=== PATIENT | female | born 1930 | race Caucasian/White ===

== ENCOUNTER → 2017-01-30 | Outpatient (CLI) | payer MEDICARE ==
[~2017-01-30] MED LIST: ASPI81TA82 PO; BENA25TA5 PO; CO Q30CA3 PO; DOCU1CAP39 PO; LORA-392 PO; MAGN30S PO; ROSU20 PO; VITA400C28 PO; VITA500T10 PO
== END ==
LOC: PLAB 15:34
PROVIDERS: ATTEND Internal Medicine
DX: J42 Unspecified chronic bronchitis (principal)
CPT/HCPCS: 87070; 87205

== ENCOUNTER → 2017-06-10 | Outpatient (CLI) | payer MEDICARE ==
[2017-06-10 13:20] LABS: HEMATOCRIT 36.5 % (35.0-46.0); MEAN CELL VOLUME 92.7 FL (80.0-100.0); MEAN CORPUSCULAR HEMOGLOBIN 31.1 PG (27.0-34.0); MEAN CORPUSCULAR HGB CONC 33.5 % (32.0-36.0); PLATELET COUNT 174 TH/MM3 (150-450); RED BLOOD COUNT 3.94 MIL/MM3 (4.00-5.30); RED CELL DISTRIBUTION WIDTH 13.5 % (11.6-17.2); REVIEW FLAG FINAL; WHITE BLOOD COUNT 5.6 TH/MM3 (4.0-11.0)
[2017-06-10 13:44] LABS: ANION GAP 4 MEQ/L (5-15); AST (GOT) 19 U/L (15-37); BICARBONATE 31.5 MEQ/L (21.0-32.0); BLOOD UREA NITROGEN 19 MG/DL (7-18); CHLORIDE 105 MEQ/L (98-107); GLOMERULAR FILTRATION RATE 49 ML/MIN (>89); GLUCOSE,FASTING 93 MG/DL (74-99); POTASSIUM 4.2 MEQ/L (3.5-5.1); SODIUM (NA) 140 MEQ/L (136-145)
[2017-06-10 13:45] LABS: ALT (GPT) 16 U/L (10-53)
[2017-06-10 13:49] LABS: ALKALINE PHOSPHATASE 74 U/L (45-117); HDL CHOLESTEROL 40.5 MG/DL (40.0-60.0); LDL CHOLESTEROL 100 MG/DL (0-99); LDL CHOLESTEROL DIRECT 109 MG/DL (0-99); TOTAL BILIRUBIN ADULT 0.7 MG/DL (0.2-1.0)
== END ==
LOC: PLAB 09:42
PROVIDERS: ATTEND Internal Medicine
DX: I25.10 Atherosclerotic heart disease of native coronary artery without angina pectoris (principal); E78.5 Hyperlipidemia, unspecified; J44.1 Chronic obstructive pulmonary disease with (acute) exacerbation
CPT/HCPCS: 36415; 80053; 80061; 83721; 85027

== ENCOUNTER → 2017-07-04 | Outpatient (CLI) | payer MEDICARE ==
[2017-07-04 13:57] LABS: HDL CHOLESTEROL 43.3 MG/DL (40.0-60.0); INDIRECT BILIRUBIN 0.4 MG/DL (0.0-0.8); TOTAL BILIRUBIN ADULT 0.5 MG/DL (0.2-1.0)
== END ==
LOC: PLAB 09:01
PROVIDERS: ATTEND Internal Medicine Interventional Cardiology
DX: R94.39 Abnormal result of other cardiovascular function study (principal); I77.9 Disorder of arteries and arterioles, unspecified; I25.10 Atherosclerotic heart disease of native coronary artery without angina pectoris; I10 Essential (primary) hypertension; E78.2 Mixed hyperlipidemia; Z79.899 Other long term (current) drug therapy; Z95.1 Presence of aortocoronary bypass graft; Z86.73 Personal history of transient ischemic attack (TIA), and cerebral infarction without residual deficits
CPT/HCPCS: 36415; 80061; 80076; 82550

== ENCOUNTER → 2017-09-27 | Outpatient (CLI) | payer MEDICARE ==
[2017-09-27 14:24] LABS: HDL CHOLESTEROL 46.6 MG/DL (40.0-60.0); INDIRECT BILIRUBIN 0.5 MG/DL (0.0-0.8); TOTAL BILIRUBIN ADULT 0.6 MG/DL (0.2-1.0)
== END ==
LOC: PLAB 08:47
PROVIDERS: ATTEND Internal Medicine Interventional Cardiology
DX: E78.2 Mixed hyperlipidemia (principal); Z79.899 Other long term (current) drug therapy
CPT/HCPCS: 36415; 80061; 80076; 82550

== ENCOUNTER → 2017-12-02 | Outpatient (CLI) | payer MEDICARE ==
[~2017-12-02] MED LIST changes: +ASPI325T27 PO; -ASPI81TA82 PO; +ATOR20TA15 PO; -BENA25TA5 PO; -CO Q30CA3 PO; +COQ130CA PO; -DOCU1CAP39 PO; +DULC5TAB PO; +IBUP200C PO; -LORA-392 PO; -MAGN30S PO; +MAPA325T PO; +METO25TA3 PO; +MILKSUS PO; -ROSU20 PO; -VITA400C28 PO; -VITA500T10 PO
[2017-12-02 16:31] LABS: HEMOGLOBIN 12.1 GM/DL (11.6-15.3); MEAN CELL VOLUME 94.1 FL (80.0-100.0); MEAN CORPUSCULAR HEMOGLOBIN 31.6 PG (27.0-34.0); MEAN CORPUSCULAR HGB CONC 33.6 % (32.0-36.0); MEAN PLATELET VOLUME 7.7 FL (7.0-11.0); PLATELET COUNT 245 TH/MM3 (150-450); RED BLOOD COUNT 3.83 MIL/MM3 (4.00-5.30); WHITE BLOOD COUNT 6.5 TH/MM3 (4.0-11.0)
[2017-12-02 16:48] LABS: ALBUMIN 3.4 GM/DL (3.4-5.0); ALT (GPT) 16 U/L (10-53); AST (GOT) 18 U/L (15-37); BICARBONATE 28.7 MEQ/L (21.0-32.0); BLOOD UREA NITROGEN 22 MG/DL (7-18); CALCIUM 9.1 MG/DL (8.5-10.1); CHLORIDE 101 MEQ/L (98-107); CREATININE 1.41 MG/DL (0.50-1.00); GLOMERULAR FILTRATION RATE 35 ML/MIN (>89); GLUCOSE,RANDOM 84 MG/DL (74-106); SODIUM (NA) 135 MEQ/L (136-145)
[2017-12-02 16:50] LABS: ALKALINE PHOSPHATASE 72 U/L (45-117); TOTAL BILIRUBIN ADULT 0.3 MG/DL (0.2-1.0); TOTAL PROTEIN 7.1 GM/DL (6.4-8.2)
== END ==
LOC: PLAB 13:10
PROVIDERS: ATTEND Emergency Medicine
DX: N39.0 Urinary tract infection, site not specified (principal)
CPT/HCPCS: 36415; 80053; 85027

== ENCOUNTER 2017-12-14 16:03 | Emergency (ER) | payer MEDICARE ==
[~2017-12-14] VITALS: Ht 157.5 cm; Wt 62.9 kg
[2017-12-14 16:28] VITALS: BP 117/64; PULSE 67; RESP 16; TEMP 98.5; O2SAT 96
--- NOTE | 2017-12-14 17:29 | PD ---
HPI Chief Complaint: Edema Time Seen by Provider: 16:42 Travel History International Travel<30 days: No Contact w/Intl Traveler<30days: No Traveled to known affect area: No History of Present Illness HPI This patient complains of swelling in her feet. Duration 2 days. Severity is mild. No pain or injury. No alleviating factors. No exacerbating factors. She is not short of breath. PFSH Past Medical History Hx Anticoagulant Therapy: Yes (as 162mg) AAA: Yes Arthritis: Yes Asthma: No Blood Disorders: Yes (from aspirin) Anxiety: No Depression: Yes Heart Rhythm Problems: Yes (? irregular -pt unsure why) Cancer: Yes (SKIN ON BACK) Cardiac Catheterization: Yes Cardiovascular Problems: Yes (htn on meds, [place], stents) High Cholesterol: Yes Chemotherapy: No Chest Pain: No Congestive Heart Failure: No COPD: No Cerebrovascular Accident: Yes (tia) Diabetes: No Diminished Hearing: No Endocrine: Yes (RENAL FAILURE IN 1962; NO PROBLEMS AT THIS TIME.) Gastrointestinal Disorders: Yes (possible irritable bowel, constipation) GERD: No Glaucoma: No Genitourinary: Yes (incontinence at times ) Hepatitis: No Hiatal Hernia: No Hypertension: No Immune Disorder: No Musculoskeletal: Yes (back pain) Neurologic: Yes Psychiatric: Yes Reproductive: No Respiratory: Yes (has seen a business services specialist sales, nodules on CXR? reason) Myocardial Infarction: Yes (1987) Radiation Therapy: No Renal Failure: Yes Thyroid Disease: No Influenza Vaccination: Yes ?: Not Past Surgical History Abdominal Aneurysm Repair: Yes (1992) Abdominal Surgery: Yes (AAA REPAIR) Coronary Stent: Yes Eye Surgery: Yes (NICOLE. CATARACT EXTRACT) Genitourinary Surgery: Yes (BLADDER SUSPENSION/ REPAIR) Gynecologic Surgery: Yes (FULL HYSTERECTOMY) Hysterectomy: Yes Oral Surgery: No Other Surgery: Yes (SINUS SURGERY) Social History Alcohol Use: No Tobacco Use: No (quit 20 years ago) Substance Use: No Allergies-Medications (Allergen,Severity, Reaction): Coded Allergies: Iodinated Contrast- Oral and IV Dye (Verified Allergy, Severe, UNKOWN, ) azithromycin (Verified Allergy, Severe, irregular heart rate, 12/14/17) codeine (Unverified Allergy, Severe, 10/24/17) gabapentin (Verified Allergy, Severe, Fever, 10/24/17) levofloxacin (Verified Allergy, Severe, Insomnia, 10/24/17) NAUSEA meperidine (Unverified Allergy, Severe, NAUSEA, 10/24/17) baclofen (Unverified Allergy, Intermediate, Swelling, 10/24/17) ciprofloxacin (Unverified Allergy, Intermediate, Insomnia, 10/24/17) nitrofurantoin (Verified Allergy, Intermediate, fevers, 12/14/17) phenazopyridine (Verified Allergy, Intermediate, n/v, 12/14/17) tramadol (Verified Allergy, Intermediate, Hallucinations, 12/14/17) cefaclor (Verified Allergy, Unknown, 12/14/17) cephalexin (Verified Allergy, Unknown, 12/14/17) cephradine (Verified Allergy, Unknown, 12/14/17) iodine (Unverified Allergy, Unknown, UNKNOWN, 10/24/17) HAS TESTED POSITIVE FOR ALLERGY TO IODINE BUT NO KNOWN EXPOSURE lidocaine (Unverified Allergy, Unknown, 10/24/17) potassium iodide (Unverified Allergy, Unknown, UNKNOWN, 10/24/17) HAS TESTED POSITIVE FOR ALLERGY TO IODINE BUT NO KNOWN EXPOSURE povidone-iodine (Unverified Allergy, Unknown, UNKNOWN, 10/24/17) HAS TESTED POSITIVE FOR ALLERGY TO IODINE BUT NO KNOWN EXPOSURE prednisone (Verified Allergy, Unknown, 12/14/17) sodium iodide (Unverified Allergy, Unknown, UNKNOWN, 10/24/17) HAS TESTED POSITIVE FOR ALLERGY TO IODINE BUT NO KNOWN EXPOSURE sodium iodide (Unverified Allergy, Unknown, UNKNOWN, 10/24/17) HAS TESTED POSITIVE FOR ALLERGY TO IODINE BUT NO KNOWN EXPOSURE epinephrine (Unverified Adverse Reaction, Severe, TACHYCARDIA/ SYNCOPE, ) Reported Meds & Prescriptions Reported Meds & Active Scripts Active Reported Mapap (Acetaminophen) 325 Mg Tab 325 Mg PO Q4-6H PRN Dulcolax DR (Bisacodyl) 5 Mg Tabdr 5 Mg PO DAILY PRN Ibuprofen 200 Mg Cap 200 Mg PO Q6H PRN Atorvastatin (Atorvastatin Calcium) 20 Mg Tab 10 Mg PO BID Metoprolol Tartrate 25 Mg Tab 12.5 Mg PO BID Aspirin DR (Aspirin) 325 Mg Tabdr 0.5 Tab PO DAILY Coq10 (Coenzyme Q10 (Ubidecarenone)) 30 Mg Cap 1 Cap PO DAILY Milk of Magnesia Liq (Magnesium Hydroxide) 400 Mg/5 Ml Susp 30 Ml PO DAILY PRN Review of Systems General / Constitutional: No: Fever Eyes: No: Visual changes HENT: No: Headaches Cardiovascular: Positive: Edema, No: Chest Pain or Discomfort Respiratory: No: Shortness of Breath Gastrointestinal: No: Abdominal Pain Genitourinary: No: Dysuria Musculoskeletal: Positive: Edema, No: Pain Skin: No Rash Neurologic: No: Weakness Psychiatric: No: Depression Endocrine: No: Polydipsia Hematologic/Lymphatic: No: Easy Bruising Physical Exam Narrative GENERAL: Well-nourished, well-developed patient in no apparent distress. SKIN: Focused skin assessment reveals no rash and nodules. Skin is Warm and dry. HEAD: Atraumatic. Normocephalic. EYES: Pupils equal and round. No scleral icterus. No injection or drainage. ENT: No nasal bleeding or discharge. Mucous membranes pink and moist. NECK: Trachea midline. No JVD. CARDIOVASCULAR: Regular rate and rhythm. No murmur appreciated. RESPIRATORY: No accessory muscle use. Clear to auscultation. Breath sounds equal bilaterally. GASTROINTESTINAL: Abdomen soft, non-tender, nondistended. Hepatic and splenic margins not palpable. MUSCULOSKELETAL: No obvious deformities. No clubbing. No cyanosis. Trace symmetric feet and ankle edema. NEUROLOGICAL: Awake and alert. No obvious cranial nerve deficits. Motor grossly within normal limits. Normal speech. PSYCHIATRIC: Appropriate mood and affect; insight and judgment normal. Data Data Last Documented VS Vital Signs Date Time Temp Pulse Resp B/P (MAP) Pulse Ox O2 Delivery O2 Flow Rate FiO2 12/14/17 16:28 98.5 67 16 117/64 (81) 96 MDM Medical Decision Making Medical Screen Exam Complete: Yes Emergency Medical Condition: Yes Medical Record Reviewed: Yes Differential Diagnosis Liver failure, renal failure, CHF Narrative Course I have reviewed the patient's electronic medical record. Reviewed her lab work from well days ago showing normal renal function normal LFTs and normal CBC Patient looks clinically well. She has minor trace edema in the feet and ankles for 2 days. Recent labs are normal. I don't feel repeating them again as needed. She is clear lungs and no shortness of breath and not in CHF Recommend primary care follow-up and elevate legs and use low-sodium diet and start with knee-high compression stockings Diagnosis Primary Impression: Leg edema Additional Instructions: The patient was advised to follow up with their physician and return if they worsen. Wear knee-high compression stockings Use low-sodium diet Elevate legs Med/Other Pt SpecificInfo: Other Disposition: 01 DISCHARGE HOME Condition: Stable Александр Todd MD Dec 14, 2017 17:29
== END 2017-12-14 17:47 | disposition home or self-care (01) ==
LOC: PHED 16:03
DX: R60.0 Localized edema (principal); M19.90 Unspecified osteoarthritis, unspecified site; I25.2 Old myocardial infarction; Z79.82 Long term (current) use of aspirin
CPT/HCPCS: 99282

== ENCOUNTER → 2017-12-18 | Outpatient (CLI) | payer MEDICARE ==
[2017-12-18 16:13] LABS: AMORPHOUS SEDIMENT, URINE OCC; BACTERIA, URINE MANY /hpf; BILIRUBIN, URINE NEG (NEG); BLOOD, URINE MOD (NEG); GLUCOSE,URINE NEG (NEG); KETONE, URINE NEG (NEG); MUCUS URINE FEW /lpf (OCC); NITRITE,URINE POS (NEG); PH, URINE 6.5 (5.0-8.5); URINE COLOR YELLOW (YELLW/STRAW); URINE LEUKOCYTE ESTERASE LARGE (NEG); WHITE BLOOD CELL CLUMPS MANY
[2017-12-18 16:15] LABS: HEMATOCRIT 36.3 % (35.0-46.0); HEMOGLOBIN 12.2 GM/DL (11.6-15.3); MEAN CELL VOLUME 94.4 FL (80.0-100.0); MEAN CORPUSCULAR HEMOGLOBIN 31.7 PG (27.0-34.0); MEAN CORPUSCULAR HGB CONC 33.6 % (32.0-36.0); MEAN PLATELET VOLUME 7.6 FL (7.0-11.0); PLATELET COUNT 270 TH/MM3 (150-450); RED BLOOD COUNT 3.84 MIL/MM3 (4.00-5.30); RED CELL DISTRIBUTION WIDTH 14.7 % (11.6-17.2); WHITE BLOOD COUNT 6.5 TH/MM3 (4.0-11.0)
[2017-12-18 16:44] LABS: ALBUMIN 3.4 GM/DL (3.4-5.0); ALKALINE PHOSPHATASE 107 U/L (45-117); ALT (GPT) 15 U/L (10-53); AST (GOT) 18 U/L (15-37); BLOOD UREA NITROGEN 16 MG/DL (7-18); CALCIUM 9.1 MG/DL (8.5-10.1); CREATININE 1.34 MG/DL (0.50-1.00); GLOMERULAR FILTRATION RATE 38 ML/MIN (>89); GLUCOSE,FASTING 95 MG/DL (74-99); TOTAL PROTEIN 7.2 GM/DL (6.4-8.2)
[2017-12-18 16:45] LABS: CHLORIDE 97 MEQ/L (98-107); CHOLESTEROL 172 MG/DL (120-200); CHOLESTEROL/ HDL RATIO 3.32 RATIO; DIRECT BILIRUBIN ADULT 0.1 MG/DL (0.0-0.2); HDL CHOLESTEROL 51.7 MG/DL (40.0-60.0); LDL CHOLESTEROL 94 MG/DL (0-99); SODIUM (NA) 130 MEQ/L (136-145); TOTAL BILIRUBIN ADULT 0.6 MG/DL (0.2-1.0); TRIGLYCERIDES 131 MG/DL (42-150)
[2017-12-18 20:50] LABS: HEMOGLOBIN A1C 6.1 % (4.3-6.0)
== END ==
LOC: PLAB 11:44
PROVIDERS: ATTEND Internal Medicine
DX: I25.10 Atherosclerotic heart disease of native coronary artery without angina pectoris (principal); J44.1 Chronic obstructive pulmonary disease with (acute) exacerbation; I10 Essential (primary) hypertension; R73.09 Other abnormal glucose; N39.0 Urinary tract infection, site not specified; B96.20 Unspecified Escherichia coli [E. coli] as the cause of diseases classified elsewhere; E78.5 Hyperlipidemia, unspecified
CPT/HCPCS: 36415; 80053; 80061; 81001; 82043; 82248; 83036; 85027; 87077; 87086; 87186

== ENCOUNTER 2018-01-06 13:24 | Inpatient (IN) | payer MEDICARE ==
[~2018-01-06] VITALS: Ht 158.8 cm; Wt 63.6 kg
[2018-01-06 14:45] VITALS: BP 146/92; PULSE 68; RESP 18; TEMP 98; O2SAT 98
--- NOTE | 2018-01-06 17:08 | PD ---
HPI Chief Complaint: Back/ Neck Pain or Injury Time Seen by Provider: 16:53 Travel History International Travel<30 days: No Contact w/Intl Traveler<30days: No Traveled to known affect area: No History of Present Illness HPI 87-year-old female who lives alone with chronic back pain with reported history of compression fractures in her thoracic and lumbar spine, here for evaluation of increased pain and inability to care for herself because of the pain. She reports a twisting injury about a week ago causing increased pain. She was prescribed hydrocodone which seemed to help her pain a little bit. She reports that she was scheduled for kyphoplasty by orthopedist Dr. Barrow, however she reports that because she owes the office money that they will not see her until she pays what she owes. No urinary or bowel incontinence or retention. No paresthesias or motor deficits. Pain is severe, constant, worse with movements. PFSH Past Medical History Hx Anticoagulant Therapy: Yes (as 162mg) AAA: Yes Arthritis: Yes Asthma: No Blood Disorders: Yes (from aspirin) Anxiety: No Depression: Yes Heart Rhythm Problems: Yes (? 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 reason) Myocardial Infarction: Yes (1987) Radiation Therapy: No Renal Failure: Yes Thyroid Disease: No Past Surgical History Abdominal Aneurysm Repair: Yes (1992) Abdominal Surgery: Yes (AAA REPAIR) Coronary Stent: Yes Eye Surgery: Yes (NICOLE. CATARACT EXTRACT) Genitourinary Surgery: Yes (BLADDER SUSPENSION/ REPAIR) Gynecologic Surgery: Yes (FULL HYSTERECTOMY) Hysterectomy: Yes Oral Surgery: No Other Surgery: Yes (SINUS SURGERY) Social History Alcohol Use: No Tobacco Use: No (quit 20 years ago) Substance Use: No Allergies-Medications (Allergen,Severity, Reaction): Coded Allergies: Iodinated Contrast- Oral and IV Dye (Verified Allergy, Severe, UNKOWN, ) azithromycin (Verified Allergy, Severe, irregular heart rate, 12/14/17) codeine (Unverified Allergy, Severe, 10/24/17) gabapentin (Verified Allergy, Severe, Fever, 10/24/17) levofloxacin (Verified Allergy, Severe, Insomnia, 10/24/17) NAUSEA meperidine (Unverified Allergy, Severe, NAUSEA, 10/24/17) baclofen (Unverified Allergy, Intermediate, Swelling, 10/24/17) ciprofloxacin (Unverified Allergy, Intermediate, Insomnia, 10/24/17) nitrofurantoin (Verified Allergy, Intermediate, fevers, 12/14/17) phenazopyridine (Verified Allergy, Intermediate, n/v, 12/14/17) tramadol (Verified Allergy, Intermediate, Hallucinations, 12/14/17) cefaclor (Verified Allergy, Unknown, 12/14/17) cephalexin (Verified Allergy, Unknown, 12/14/17) cephradine (Verified Allergy, Unknown, 12/14/17) iodine (Unverified Allergy, Unknown, UNKNOWN, 10/24/17) HAS TESTED POSITIVE FOR ALLERGY TO IODINE BUT NO KNOWN EXPOSURE lidocaine (Unverified Allergy, Unknown, 10/24/17) potassium iodide (Unverified Allergy, Unknown, UNKNOWN, 10/24/17) HAS TESTED POSITIVE FOR ALLERGY TO IODINE BUT NO KNOWN EXPOSURE povidone-iodine (Unverified Allergy, Unknown, UNKNOWN, 10/24/17) HAS TESTED POSITIVE FOR ALLERGY TO IODINE BUT NO KNOWN EXPOSURE prednisone (Verified Allergy, Unknown, 12/14/17) sodium iodide (Unverified Allergy, Unknown, UNKNOWN, 10/24/17) HAS TESTED POSITIVE FOR ALLERGY TO IODINE BUT NO KNOWN EXPOSURE sodium iodide (Unverified Allergy, Unknown, UNKNOWN, 10/24/17) HAS TESTED POSITIVE FOR ALLERGY TO IODINE BUT NO KNOWN EXPOSURE epinephrine (Unverified Adverse Reaction, Severe, TACHYCARDIA/ SYNCOPE, ) Reported Meds & Prescriptions Reported Meds & Active Scripts Active Reported Angelica (Hydrocodone-Acetaminophen) 5 Mg-325 Mg Tab 1 Tab PO Q4-6H PRN Aspirin Adult Low Strength (Aspirin) 81 Mg Tabdr 40.5 Mg PO DAILY Mapap (Acetaminophen) 325 Mg Tab 325 Mg PO Q4-6H PRN Dulcolax DR (Bisacodyl) 5 Mg Tabdr 5 Mg PO DAILY PRN Ibuprofen 200 Mg Cap 200 Mg PO Q6H PRN Atorvastatin (Atorvastatin Calcium) 20 Mg Tab 10 Mg PO DAILY Metoprolol Tartrate 25 Mg Tab 12.5 Mg PO BID Milk of Magnesia Liq (Magnesium Hydroxide) 400 Mg/5 Ml Susp 30 Ml PO DAILY PRN Review of Systems Except as stated in HPI: all other systems reviewed are Neg Physical Exam Narrative GENERAL: Well-developed, well-nourished, elderly-appearing female, comfortable, no apparent distress. SKIN: Focused skin assessment warm/dry. HEAD: Atraumatic. Normocephalic. EYES: Pupils equal and round. No scleral icterus. No injection or drainage. ENT: No nasal bleeding or discharge. Mucous membranes pink and moist. NECK: Trachea midline. No JVD. CARDIOVASCULAR: Regular rate and rhythm. No murmur appreciated. RESPIRATORY: No accessory muscle use. Clear to auscultation. Breath sounds equal bilaterally. GASTROINTESTINAL: Abdomen soft, non-tender, nondistended. Hepatic and splenic margins not palpable. MUSCULOSKELETAL: No obvious deformities. No clubbing. No cyanosis. Moderate bilateral lower extremity edema. Moderate lumbar and thoracic spine tenderness without step-off. NEUROLOGICAL: Awake and alert. No obvious cranial nerve deficits. Motor grossly within normal limits. Normal speech. PSYCHIATRIC: Appropriate mood and affect; insight and judgment normal. Data Data Last Documented VS Vital Signs Date Time Temp Pulse Resp B/P (MAP) Pulse Ox O2 Delivery O2 Flow Rate FiO2 01/06/18 18:13 24 01/06/18 17:21 66 131/63 (85) 98 Room Air 01/06/18 14:45 98.0 Orders Orders Complete Blood Count With Diff (01/06/18 17:) Comprehensive Metabolic Panel (01/06/18 17:) Prothrombin Time / Inr (Pt) (01/06/18 17:) Act Partial Throm Time (Ptt) (01/06/18 17:) Urinalysis - C+S If Indicated (01/06/18 17:) Iv Access Insert/Monitor (01/06/18 17:) Ecg Monitoring (01/06/18 17:01) Oximetry (01/06/18 17:01) Sodium Chloride 0.9% Flush (Ns Flush) (01/06/18 17:15) Chest, Single Ap (01/06/18 ) Ct Thor Spine W/O Contrast (01/06/18 ) Ct Lumb Spine W/O Contrast (01/06/18 ) Cath For Specimen (01/06/18 17:01) Morphine Inj (Morphine Inj) (01/06/18 17:15) Urine Culture (01/06/18 18:00) Piperacil-Tazo 4.5 Gm Premix (Zosyn 4.5 (01/06/18 19:00) Labs Laboratory Tests Test 01/06/18 17:44 01/06/18 18:00 White Blood Count 6.9 TH/MM3 Red Blood Count 3.64 MIL/MM3 Hemoglobin 11.7 GM/DL Hematocrit 34.5 % Mean Corpuscular Volume 94.6 FL Mean Corpuscular Hemoglobin 32.2 PG Mean Corpuscular Hemoglobin Concent 34.1 % Red Cell Distribution Width 13.9 % Platelet Count 254 TH/MM3 Mean Platelet Volume 7.0 FL Neutrophils (%) (Auto) 61.4 % Lymphocytes (%) (Auto) 25.5 % Monocytes (%) (Auto) 10.8 % Eosinophils (%) (Auto) 1.8 % Basophils (%) (Auto) 0.5 % Neutrophils # (Auto) 4.2 TH/MM3 Lymphocytes # (Auto) 1.8 TH/MM3 Monocytes # (Auto) 0.7 TH/MM3 Eosinophils # (Auto) 0.1 TH/MM3 Basophils # (Auto) 0.0 TH/MM3 CBC Comment DIFF FINAL Differential Comment Prothrombin Time 10.7 SEC Prothromb Time International Ratio 1.1 RATIO Activated Partial Thromboplast Time 25.0 SEC Blood Urea Nitrogen 21 MG/DL Creatinine 1.27 MG/DL Random Glucose 114 MG/DL Total Protein 7.4 GM/DL Albumin 3.5 GM/DL Calcium Level 9.7 MG/DL Alkaline Phosphatase 97 U/L Aspartate Amino Transf (AST/SGOT) 27 U/L Alanine Aminotransferase (ALT/SGPT) 25 U/L Total Bilirubin 0.5 MG/DL Sodium Level 132 MEQ/L Potassium Level 4.0 MEQ/L Chloride Level 97 MEQ/L Carbon Dioxide Level 26.9 MEQ/L Anion Gap 8 MEQ/L Estimat Glomerular Filtration Rate 40 ML/MIN Urine Color DARK-YELLOW Urine Turbidity HAZY Urine pH 6.5 Urine Specific Crucible 1.014 Urine Protein 30 mg/dL Urine Glucose (UA) NEG mg/dL Urine Ketones NEG mg/dL Urine Occult Blood SMALL Urine Nitrite NEG Urine Bilirubin NEG Urine Urobilinogen LESS THAN 2.0 MG/DL Urine Leukocyte Esterase LARGE Urine RBC 8 /hpf Urine WBC /hpf Urine WBC Clumps FEW Urine Squamous Epithelial Cells 1 /hpf Urine Amorphous Sediment RARE Urine Bacteria MOD /hpf Microscopic Urinalysis Comment CULTURE INDICATED MDM Medical Decision Making Medical Screen Exam Complete: Yes Emergency Medical Condition: Yes Medical Record Reviewed: Yes Differential Diagnosis Chronic back pain, spinal stenosis/compression fractures, inability to care for self. Narrative Course Vital signs reviewed. CBC is unremarkable. CMP is remarkable for sodium 132, chloride 97, BUN 21, creatinine 1.27, GFR 40. UA suggestive of UTI. The patient has several listed medication allergies. She was written for a dose of Zosyn. Chest x-ray: CONCLUSION: No acute disease. CT thoracic spine: CONCLUSION: 1. Mild and potentially acute compression fracture of T10 without associated foraminal or spinal stenosis. 2. Moderate severity chronic appearing compression fracture of T11. CT lumbar spine: CONCLUSION: 1. Chronic compression deformities of each lumbar vertebra as above without fracture-associated foraminal or spinal stenosis. No acute fracture demonstrated. No subluxation. 2. Multilevel degenerative changes as above. Patient was made aware of all findings. She lives alone and states she is unable to walk or take care of herself because of the pain. Because of this she will be admitted for further treatment and evaluation. Case discussed with hospitalist Dr. Hoover who will admit the patient to her service. Diagnosis Primary Impression: Severe back pain Additional Impressions: Gait instability UTI (urinary tract infection) Qualified Codes: N39.0 - Urinary tract infection, site not specified; R31.9 - Hematuria, unspecified Vertebral compression fracture Qualified Codes: M48.50XS - Collapsed vertebra, not elsewhere classified, site unspecified, sequela of fracture Admitting Information Admitting Physician Requests: Levar Dove MD Jan 06, 2018 17:08
[2018-01-06] MEDS ORDERED: SODIUM CHLORIDE 0.9% FLUSH 10 ML FLUSH IV FLUSH PRN ×2 (17:15→20:15)
[2018-01-06] MEDS ORDERED: MORPHINE SULFATE 2 MG/ML INJ IV PUSH ONE ×2 (17:15→20:45)
[2018-01-06 17:21] VITALS: BP 131/63; PULSE 66; O2SAT 98
--- NOTE | 2018-01-06 17:21 | RADRPT ---
EXAM DATE/TIME: 01/06/2018 17:06 [facility] COMPARISON: No previous studies available for comparison. INDICATIONS : Short of breath MEDICAL HISTORY : Cardiovascular disease. SURGICAL HISTORY : None. ENCOUNTER: Initial ACUITY: 1 day PAIN SCORE: 0/10 LOCATION: chest FINDINGS: A single view of the chest demonstrates the lungs to be symmetrically aerated without evidence of mas s, infiltrate or effusion. The cardiomediastinal contours are unremarkable. Osseous structures are intact. CONCLUSION: No acute disease. Dawson Farris MD on January 06, 2018 at 17:19 Board Certified Radiologist. This report was verified electronically.
[2018-01-06] MEDS ORDERED: NORC5TAB PO (17:57)
[2018-01-06] MEDS ORDERED: ASPI81TA16 PO (17:57)
[2018-01-06 18:18] LABS: AUTOMATED NEUTROPHIL # 4.2 TH/MM3 (1.8-7.7); BASOPHIL % 0.5 % (0.0-2.0); EOSINOPHIL # 0.1 TH/MM3 (0-0.4); EOSINOPHIL % 1.8 % (0.0-4.0); HEMATOCRIT 34.5 % (35.0-46.0); HEMOGLOBIN 11.7 GM/DL (11.6-15.3); LYMPH % 25.5 % (9.0-44.0); LYMPHOCYTE # 1.8 TH/MM3 (1.0-4.8); MEAN CELL VOLUME 94.6 FL (80.0-100.0); MEAN CORPUSCULAR HEMOGLOBIN 32.2 PG (27.0-34.0); MEAN CORPUSCULAR HGB CONC 34.1 % (32.0-36.0); MONO % 10.8 % (0.0-8.0); MONOCYTE # 0.7 TH/MM3 (0-0.9); NEUT % 61.4 % (16.0-70.0); PLATELET COUNT 254 TH/MM3 (150-450); RED BLOOD COUNT 3.64 MIL/MM3 (4.00-5.30); RED CELL DISTRIBUTION WIDTH 13.9 % (11.6-17.2); WHITE BLOOD COUNT 6.9 TH/MM3 (4.0-11.0)
[2018-01-06 18:25] LABS: INTERNATIONAL NORMALIZED RATIO 1.1 RATIO; PROTHROMBIN TIME - PATIENT 10.7 SEC (9.8-11.6)
[2018-01-06 18:38] LABS: ALT (GPT) 25 U/L (10-53)
[2018-01-06 18:41] LABS: ALKALINE PHOSPHATASE 97 U/L (45-117); TOTAL BILIRUBIN ADULT 0.5 MG/DL (0.2-1.0); TOTAL PROTEIN 7.4 GM/DL (6.4-8.2)
[2018-01-06 18:42] LABS: AMORPHOUS SEDIMENT, URINE RARE; BACTERIA, URINE MOD /hpf; BILIRUBIN, URINE NEG (NEG); BLOOD, URINE SMALL (NEG); GLUCOSE,URINE NEG (NEG); KETONE, URINE NEG (NEG); NITRITE,URINE NEG (NEG); PH, URINE 6.5 (5.0-8.5); SQUAMOUS EPITHELIAL CELL URINE 1 /hpf (0-5); URINE COLOR DARK-YELLOW (YELLW/STRAW); URINE LEUKOCYTE ESTERASE LARGE (NEG); WHITE BLOOD CELL CLUMPS FEW
[2018-01-06 18:49] LABS: ALBUMIN 3.5 GM/DL (3.4-5.0); AST (GOT) 27 U/L (15-37); BICARBONATE 26.9 MEQ/L (21.0-32.0); BLOOD UREA NITROGEN 21 MG/DL (7-18); CALCIUM 9.7 MG/DL (8.5-10.1); CHLORIDE 97 MEQ/L (98-107); CREATININE 1.27 MG/DL (0.50-1.00); GLOMERULAR FILTRATION RATE 40 ML/MIN (>89); GLUCOSE,RANDOM 114 MG/DL (74-106); SODIUM (NA) 132 MEQ/L (136-145)
[2018-01-06] MEDS ORDERED: PIPERACIL-TAZO 4.5 GM PREMIX 100 ML IV ONE (19:00)
--- NOTE | 2018-01-06 19:32 | RADRPT ---
EXAM DATE/TIME: 01/06/2018 19:05 [facility] COMPARISON: Report only MRI THORACIC SPINE W/O CONTRAST, December 13, 2013, 15:33. INDICATIONS : Low back pain for two to three weeks; prior fracture. RADIATION DOSE: 24.78 CTDIvol (mGy) ; Combined studies - Thoracic Spine/Lumbar Spine MEDICAL HISTORY : Cerebrovascular disease. Cardiovascular disease Hypertension.Renal failure SURGICAL HISTORY : Abdominal aortic aneurysm repair. ENCOUNTER: Initial ACUITY: 3 weeks PAIN SCALE: 8/10 LOCATION: T spine TECHNIQUE: Volumetric scanning of the thoracic spine was performed. Multiplanar reconstructions in the sagittal , coronal and oblique axial planes were performed. Using automated exposure control and adjustment o f the mA and/or kV according to patient size, radiation dose was kept as low as reasonably achievable to obtain optimal diagnostic quality images. DICOM format image data is available electronically f or review and comparison. FINDINGS: There is an old appearing, moderate severity compression fracture of T11. There is a mild superior endplate compression fracture of T10, possibly acute. No other fractures are demonstrated of the thoracic spine. No significant retropulsion. There is no s ignificant fracture-associated foraminal or spinal stenosis. I don't see an epidural hematoma. CONCLUSION: 1. Mild and potentially acute compression fracture of T10 without associated foraminal or spinal sten osis. 2. Moderate severity chronic appearing compression fracture of T11. Abran Burnett MD on January 06, 2018 at 19:26 Board Certified Radiologist. This report was verified electronically.
--- NOTE | 2018-01-06 19:38 | RADRPT ---
EXAM DATE/TIME: 01/06/2018 19:05 [facility] COMPARISON: Report only MRI LUMBAR SPINE W/O CONTRAST, December 10, 2013, 16:54. INDICATIONS : Back pain for 2 -3 weeks; prior fracture. RADIATION DOSE: 24.78 CTDIvol (mGy) ; Combined studies - Thoracic Spine/Lumbar Spine MEDICAL HISTORY : Cerebrovascular disease. Cardiovascular disease Hypertension.Renal failure SURGICAL HISTORY : Abdominal aortic aneurysm repair. ENCOUNTER: Initial ACUITY: 2 weeks PAIN SCALE: 8/10 LOCATION: lower back TECHNIQUE: Volumetric scanning of the lumbar spine was performed. Multiplanar reconstructions in the sagittal, coronal and oblique axial planes were performed. Using automated exposure control and adjustment of the mA and/or kV according to patient size, radiation dose was kept as low as reasonably achievable t o obtain optimal diagnostic quality images. DICOM format image data is available electronically for review and comparison. FINDINGS: Chronic appearing compression deformities are noted, moderate to severe at L1, moderate of L2 and L3 and mild at L4 and L5. No significant retropulsion demonstrated or fracture-associated foraminal or s shanna stenosis. No subluxations. Chronic appearing broad-based at essentially all levels. There is bilateral facet osteoarthritis thro ughout, mild to moderate T12-L3/L4 and moderate to severe L4/L5 and L5/S1. Associated mild spinal kwaku nosis at L2/L3, L3/L4 and L4/L5. There is mild foraminal stenosis at T12/L1, moderate bilateral vidal inal stenosis at L1/L2, L2/L3 and L3/L4, mild right and moderate left foraminal stenosis at L4/L5 and mild bilateral foraminal stenosis at L5/S1. CONCLUSION: 1. Chronic compression deformities of each lumbar vertebra as above without fracture-associated vidal inal or spinal stenosis. No acute fracture demonstrated. No subluxation. 2. Multilevel degenerative changes as above. Abran Burnett MD on January 06, 2018 at 19:31 Board Certified Radiologist. This report was verified electronically.
[2018-01-06] MEDS ORDERED: NALOXONE HCL 0.4 MG/ML AMP IV PUSH PRN (20:15)
[2018-01-06] MEDS: SODIUM CHLORIDE 0.9% FLUSH 10 ML FLUSH IV FLUSH SCH (21:00)
[2018-01-06 22:18] VITALS: BP 163/76; PULSE 74; O2SAT 97
--- NOTE | 2018-01-06 22:49 | HHI.HP ---
[facility] Primary Care Physician Paulie Mancilla MD Admission Diagnosis Severe back pain, UTI, gait instability, vertebral fractures Diagnoses: Chief Complaint: UTI, severe back pain Travel History International Travel<30 Days: No Contact w/Intl Traveler <30 Da: No Traveled to Known Affected Are: No History of Present Illness 87 y/o female with a history of chronic UTIs, GA with stent placement, spinal fractures,HTN, and HLD presented to the ED with complaints of severe back pain and dysuria. Patient states she has had severe pain for over a month but for the last 2 weeks it has been severe in her mid to lower back, that is constant, and sharp, 10/10, worse with movement, morphine helps a little bit, associated numbness and tingling in bilateral legs. She is unable to walk and is unable to care for herself. She states she has been sitting in a chair most of the day and her niece comes at night to stay with her and help her but she is alone during the day. She denies any recent falls but states she may have twisted her body wrong to cause even more severe pain. Upon examination patient is very painful and is unable to roll side to side without excruciating pain. She may not be able to be discharged home since she is unable to care for her self and lives alone, and the continuous use of IV pain medicine currently. She states was doing injections under anesthesia and her last one was on Oct 09. He was seen by Danial who was going to do kyphoplasty but she states needed to be cleared from cardiology and urology first, and needed to pay a balance in the office as well. She states because the doctor would not schedule her surgery because of the balance she owed she wants a second opinion and does not want to see Dr. Barrow again. She states she was supposed to see Dr. Weir today in the office for her chronic UTIs but missed her appointment. She states he is trying to figure out why she continues to have UTIs and was supposed to have a scan completed but is unsure which scan she needed. She denies any recent antibiotic use, but complains of constant burning with urination and frequency. Orthopedic: Dr. Barrow Urologist: Dr. Weir Dental Laboratory Manager: Dr. Leiva Review of Systems Except as stated in HPI: all other systems reviewed are Neg Past Family Social History Past Medical History Hyperlipidemia Hypertension Chronic UTIs GA with stent placement Past Surgical History Hysterectomy cataracts Bladder repair AAA repair Extents Reported Medications Reported Meds & Active Scripts Active Reported [place] (Hydrocodone-Acetaminophen) 5 Mg-325 Mg Tab 1 Tab PO Q4-6H PRN Aspirin Adult Low Strength (Aspirin) 81 Mg Tabdr 40.5 Mg PO DAILY Mapap (Acetaminophen) 325 Mg Tab 325 Mg PO Q4-6H PRN Dulcolax DR (Bisacodyl) 5 Mg Tabdr 5 Mg PO DAILY PRN Ibuprofen 200 Mg Cap 200 Mg PO Q6H PRN Atorvastatin (Atorvastatin Calcium) 20 Mg Tab 10 Mg PO DAILY Metoprolol Tartrate 25 Mg Tab 12.5 Mg PO BID Milk of Magnesia Liq (Magnesium Hydroxide) 400 Mg/5 Ml Susp 30 Ml PO DAILY PRN Allergies: Coded Allergies: Iodinated Contrast- Oral and IV Dye (Verified Allergy, Severe, UNKOWN, ) azithromycin (Verified Allergy, Severe, irregular heart rate, 12/14/17) codeine (Unverified Allergy, Severe, 10/24/17) gabapentin (Verified Allergy, Severe, Fever, 10/24/17) levofloxacin (Verified Allergy, Severe, Insomnia, 10/24/17) NAUSEA meperidine (Unverified Allergy, Severe, NAUSEA, 10/24/17) baclofen (Unverified Allergy, Intermediate, Swelling, 10/24/17) ciprofloxacin (Unverified Allergy, Intermediate, Insomnia, 10/24/17) nitrofurantoin (Verified Allergy, Intermediate, fevers, 12/14/17) phenazopyridine (Verified Allergy, Intermediate, n/v, 12/14/17) tramadol (Verified Allergy, Intermediate, Hallucinations, 12/14/17) cefaclor (Verified Allergy, Unknown, 12/14/17) cephalexin (Verified Allergy, Unknown, 12/14/17) cephradine (Verified Allergy, Unknown, 12/14/17) iodine (Unverified Allergy, Unknown, UNKNOWN, 10/24/17) HAS TESTED POSITIVE FOR ALLERGY TO IODINE BUT NO KNOWN EXPOSURE lidocaine (Unverified Allergy, Unknown, 10/24/17) potassium iodide (Unverified Allergy, Unknown, UNKNOWN, 10/24/17) HAS TESTED POSITIVE FOR ALLERGY TO IODINE BUT NO KNOWN EXPOSURE povidone-iodine (Unverified Allergy, Unknown, UNKNOWN, 10/24/17) HAS TESTED POSITIVE FOR ALLERGY TO IODINE BUT NO KNOWN EXPOSURE prednisone (Verified Allergy, Unknown, 12/14/17) sodium iodide (Unverified Allergy, Unknown, UNKNOWN, 10/24/17) HAS TESTED POSITIVE FOR ALLERGY TO IODINE BUT NO KNOWN EXPOSURE sodium iodide (Unverified Allergy, Unknown, UNKNOWN, 10/24/17) HAS TESTED POSITIVE FOR ALLERGY TO IODINE BUT NO KNOWN EXPOSURE epinephrine (Unverified Adverse Reaction, Severe, TACHYCARDIA/ SYNCOPE, ) Active Ordered Medications Current Medications Medications (Trade) Dose Ordered Sig/[place] Route Start Time Stop Time Status Last Admin (NS Flush) 2 ml UNSCH PRN IV FLUSH 01/06/18 20:15 (NS Flush) 2 ml BID IV FLUSH 01/06/18 21:00 01/06/18 21:00 (Narcan Inj) 0.4 mg UNSCH PRN IV PUSH 01/06/18 20:15 (Morphine Inj) 2 mg Q3H PRN IV PUSH 01/06/18 20:15 (Flexeril) 5 mg Q8H PRN PO 01/06/18 23:00 (Pill Splitter) 1 ea UNSCH PRN OTHER 01/06/18 23:00 Family History Patient denies any family history Social History Patient denies any tobacco, alcohol or illicit drug use Physical Exam Vital Signs Vital Signs Date Time Temp Pulse Resp B/P (MAP) Pulse Ox O2 Delivery O2 Flow Rate FiO2 01/06/18 22:18 74 163/76 (105) 97 Room Air 01/06/18 18:13 24 01/06/18 17:21 66 131/63 (85) 98 Room Air 01/06/18 14:45 98.0 68 18 146/92 (110) 98 Physical Exam GENERAL: This is a well-nourished, well-developed patient, in apparent pain SKIN: No rashes, ecchymoses or lesions. Cool and dry. HEAD: Atraumatic. Normocephalic. EYES: Pupils equal round and reactive. ENT: Nose without bleeding, purulent drainage or septal hematoma. Airway patent. NECK: Trachea midline. No JVD or lymphadenopathy. CARDIOVASCULAR: Regular rate and rhythm without murmurs, gallops, or rubs. RESPIRATORY: Clear to auscultation. Breath sounds equal bilaterally. No wheezes , rales, or rhonchi. GASTROINTESTINAL: Abdomen soft, non-tender, nondistended. CVA tenderness. No guarding. MUSCULOSKELETAL: Lower back tenderness to palpation. No calf tenderness. NEUROLOGICAL: Awake and alert. Motor and sensory grossly within normal limits. . Normal speech. Laboratory Laboratory Tests Test 01/06/18 17:44 01/06/18 18:00 White Blood Count 6.9 Red Blood Count 3.64 Hemoglobin 11.7 Hematocrit 34.5 Mean Corpuscular Volume 94.6 Mean Corpuscular Hemoglobin 32.2 Mean Corpuscular Hemoglobin Concent 34.1 Red Cell Distribution Width 13.9 Platelet Count 254 Mean Platelet Volume 7.0 Neutrophils (%) (Auto) 61.4 Lymphocytes (%) (Auto) 25.5 Monocytes (%) (Auto) 10.8 Eosinophils (%) (Auto) 1.8 Basophils (%) (Auto) 0.5 Neutrophils # (Auto) 4.2 Lymphocytes # (Auto) 1.8 Monocytes # (Auto) 0.7 Eosinophils # (Auto) 0.1 Basophils # (Auto) 0.0 CBC Comment DIFF FINAL Differential Comment Prothrombin Time 10.7 Prothromb Time International Ratio 1.1 Activated Partial Thromboplast Time 25.0 Blood Urea Nitrogen 21 Creatinine 1.27 Random Glucose 114 Total Protein 7.4 Albumin 3.5 Calcium Level 9.7 Alkaline Phosphatase 97 Aspartate Amino Transf (AST/SGOT) 27 Alanine Aminotransferase (ALT/SGPT) 25 Total Bilirubin 0.5 Sodium Level 132 Potassium Level 4.0 Chloride Level 97 Carbon Dioxide Level 26.9 Anion Gap 8 Estimat Glomerular Filtration Rate 40 Urine Color DARK-YELLOW Urine Turbidity HAZY Urine pH 6.5 Urine Specific [place] 1.014 Urine Protein 30 Urine Glucose (UA) NEG Urine Ketones NEG Urine Occult Blood SMALL Urine Nitrite NEG Urine Bilirubin NEG Urine Urobilinogen LESS THAN 2.0 Urine Leukocyte Esterase LARGE Urine RBC 8 Urine WBC Urine WBC Clumps FEW Urine Squamous Epithelial Cells 1 Urine Amorphous Sediment RARE Urine Bacteria MOD Microscopic Urinalysis Comment CULTURE INDICATED Date/Time Source Procedure Growth Status 01/06/18 18:00 Urine Clean Catch Urine Culture Pending Received Result Diagram: 01/06/18 1744 01/06/18 1744 Imaging Last Impressions Thoracic Spine CT 01/06/18 0000 Signed Impressions: Service Date/Time: Saturday, January 06, 2018 19:05 - CONCLUSION: 1. Mild and potentially acute compression fracture of T10 without associated foraminal or spinal stenosis. 2. Moderate severity chronic appearing compression fracture of T11. Abran Burnett MD Lumbar Spine CT 01/06/18 0000 Signed Impressions: Service Date/Time: Saturday, January 06, 2018 19:05 - CONCLUSION: 1. Chronic compression deformities of each lumbar vertebra as above without fracture-associated foraminal or spinal stenosis. No acute fracture demonstrated. No subluxation. 2. Multilevel degenerative changes as above. Abran Burnett MD Chest X-Ray 01/06/18 0000 Signed Impressions: Service Date/Time: Saturday, January 06, 2018 17:06 - CONCLUSION: No acute disease. Dawson Farris MD [place]i VTE Risk Assessment Caprini VTE Risk Assessment: No/Low Risk (score <= 1) Caprini Risk Assessment Model Point Value = 1 Point Value = 2 Point Value = 3 Point Value = 5 Age 41-60 Minor surgery BMI > 25 kg/m2 Swollen legs Varicose veins or History of unexplained or recurrent spontaneous Oral contraceptives or hormone replacement Sepsis (< 1 month) Serious lung disease, including pneumonia (< 1 month) Abnormal pulmonary function Acute myocardial infarction Congestive heart failure (< 1 month) History of inflammatory bowel disease Medical patient at bed rest Age 61-74 Arthroscopic surgery Major open surgery (> 45 min) Laparoscopic surgery (> 45 min) Malignancy Confined to bed (> 72 hours) Immobilizing plaster cast Central venous access Age >= 75 History of VTE Family history of VTE Factor V Leiden Prothrombin [id number] Lupus anticoagulant Anticardiolipin antibodies Elevated serum homocysteine Heparin-induced thrombocytopenia Other congenital or acquired thrombophilia Stroke (< 1 month) Elective arthroplasty Hip, pelvis, or leg fracture Acute spinal cord injury (< 1 month) Prophylaxis Regimen Total Risk Factor Score Risk Level Prophylaxis Regimen 0-1 Low Early ambulation 2 Moderate Order ONE of the following: *Sequential Compression Device (SCD) *Heparin 5000 units SQ BID 3-4 Higher Order ONE of the following medications: *Heparin 5000 units SQ TID *Enoxaparin/Lovenox 40 mg SQ daily (WT < 150 kg, CrCl > 30 mL/min) *Enoxaparin/Lovenox 30 mg SQ daily (WT < 150 kg, CrCl > 10-29 mL/min) *Enoxaparin/Lovenox 30 mg SQ BID (WT < 150 kg, CrCl > 30 mL/min) AND/OR *Sequential Compression Device (SCD) 5 or more Highest Order ONE of the following medications: *Heparin 5000 units SQ TID (Preferred with Epidurals) *Enoxaparin/Lovenox 40 mg SQ daily (WT < 150 kg, CrCl > 30 mL/min) *Enoxaparin/Lovenox 30 mg SQ daily (WT < 150 kg, CrCl > 10-29 mL/min) *Enoxaparin/Lovenox 30 mg SQ BID (WT < 150 kg, CrCl > 30 mL/min) AND *Sequential Compression Device (SCD) Assessment and Plan Problem List: (1) UTI (lower urinary tract infection) ICD Code: N39.0 - UTI (lower urinary tract infection) Status: Acute (2) Vertebral compression fracture ICD Code: M48.50XA - Collapsed vertebra, not elsewhere classified, site unspecified, initial encounter for fracture Status: Acute (3) Severe back pain ICD Code: M54.9 - Dorsalgia, unspecified Status: Acute Assessment and Plan 87 y/o female with a history of chronic UTIs, spinal fractures,HTN, and HLD presented to the ED with complaints of severe back pain and dysuria. Compression fractures, possibly acute on chronic, T10, T11, with intractable severe pain Thoracic spine CT reviewed and shows mild and potentially acute compression fracture of T12 without associated for minimal or spinal stenosis, chronic appearing compression fracture of T11 -Patient wishes not to see Dr. Barrow, consult neurosurgery for recommendations -Patient requiring multiple doses of IV morphine for pain management -Add Flexeril by mouth for pain management UTI, acute on chronic UA shows a large leukocyte esterase -Urine culture pending -Empirically treat with IV antibiotics Zosyn -Consult nephrology, patient follows with Dr. Weir Hypertension, chronic, currently elevated likely due to pain -Continue home medications metoprolol, monitor vitals, will order prn's as needed DVT prophylaxis: SCDs Discussed Condition With Patient, RN and ED physician Problem Qualifiers (1) Vertebral compression fracture: Qualified Codes: M48.50XS - Collapsed vertebra, not elsewhere classified, site unspecified, sequela of fracture Becka Cr Jan 06, 2018 22:49
[2018-01-06] MEDS ORDERED: PILL SPLITTER OTHER PRN (23:00)
[2018-01-07] VITALS (10 sets, daily range): BP systolic 111–148; BP diastolic 53–72; PULSE 62–71; RESP 16–20; TEMP 97.5–98.4; O2SAT 93–97
[2018-01-07] MEDS: CYCLOBENZAPRINE HCL 10 MG TAB PO PRN ×2 (01:11→10:40)
[2018-01-07] MEDS: MORPHINE SULFATE 4 MG/ML INJ IV PUSH PRN (01:12)
[2018-01-07] MEDS: METOPROLOL TARTRATE 25 MG TAB PO SCH ×3 (01:15→20:32)
[2018-01-07] MEDS: SODIUM CHLORIDE 0.9% FLUSH 10 ML FLUSH IV FLUSH SCH ×2 (08:16→20:32)
[2018-01-07] MEDS ORDERED: ASPIRIN 81 MG CHEW TAB CHEW SCH (09:00)
[2018-01-07] MEDS ORDERED: ATORVASTATIN 10 MG TAB PO SCH (09:00)
[2018-01-07] MEDS ORDERED: ASPIRIN EC 81 MG TABEC PO SCH (09:00)
--- NOTE | 2018-01-07 10:29 | PD.CONS ---
HPI Service Nephrology Consult Requested By Reason for Consult Hx CKD Primary Care Physician Paulie Mancilla MD History of Present Illness This is an 87 y/o female with CKD 3. She was seen in our CKD clinic last week, diagnosed with E coli UTI. She gets frequent UTIs with unknown etiology. Prescribed Macrobid, which the culture reported sensitivity to, the patient reports allergy to this medication, the allergy is a fever. She has multiple allergies to antibiotics. Today her renal function is at baseline, creatinine 1.27,, GFR in 30s. Urology was also consulted to assist. She has right renal atrophy, has seen urology but has not proceeded with any intervention as far as I can tell. She is ambulating with therapy in the hallway currently. Tolerating PO fluids. (Frances Nash) Review of Systems Genitourinary: COMPLAINS OF: Urinary frequency, Urinary incontinence, Dysuria ( Frances Nash) Past Family Social History Allergies: Coded Allergies: Iodinated Contrast- Oral and IV Dye (Verified Allergy, Severe, UNKOWN, ) azithromycin (Verified Allergy, Severe, irregular heart rate, 12/14/17) codeine (Unverified Allergy, Severe, 10/24/17) gabapentin (Verified Allergy, Severe, Fever, 10/24/17) levofloxacin (Verified Allergy, Severe, Insomnia, 10/24/17) NAUSEA meperidine (Unverified Allergy, Severe, NAUSEA, 10/24/17) baclofen (Unverified Allergy, Intermediate, Swelling, 10/24/17) ciprofloxacin (Unverified Allergy, Intermediate, Insomnia, 10/24/17) nitrofurantoin (Verified Allergy, Intermediate, fevers, 12/14/17) phenazopyridine (Verified Allergy, Intermediate, n/v, 12/14/17) tramadol (Verified Allergy, Intermediate, Hallucinations, 12/14/17) cefaclor (Verified Allergy, Unknown, 12/14/17) cephalexin (Verified Allergy, Unknown, 12/14/17) cephradine (Verified Allergy, Unknown, 12/14/17) iodine (Unverified Allergy, Unknown, UNKNOWN, 10/24/17) HAS TESTED POSITIVE FOR ALLERGY TO IODINE BUT NO KNOWN EXPOSURE lidocaine (Unverified Allergy, Unknown, 10/24/17) potassium iodide (Unverified Allergy, Unknown, UNKNOWN, 10/24/17) HAS TESTED POSITIVE FOR ALLERGY TO IODINE BUT NO KNOWN EXPOSURE povidone-iodine (Unverified Allergy, Unknown, UNKNOWN, 10/24/17) HAS TESTED POSITIVE FOR ALLERGY TO IODINE BUT NO KNOWN EXPOSURE prednisone (Verified Allergy, Unknown, 12/14/17) sodium iodide (Unverified Allergy, Unknown, UNKNOWN, 10/24/17) HAS TESTED POSITIVE FOR ALLERGY TO IODINE BUT NO KNOWN EXPOSURE sodium iodide (Unverified Allergy, Unknown, UNKNOWN, 10/24/17) HAS TESTED POSITIVE FOR ALLERGY TO IODINE BUT NO KNOWN EXPOSURE epinephrine (Unverified Adverse Reaction, Severe, TACHYCARDIA/ SYNCOPE, ) Past Medical History CKD, Baseline creatinine 1.3, GFR 38 (CKD 3) Hyperlipidemia HTN Chronic UTIs ND with stent placement Past Surgical History Hysterectomy cataracts Bladder repair AAA repair Extents Reported Medications [place] (Hydrocodone-Acetaminophen) 5 Mg-325 Mg Tab 1 Tab PO Q4-6H PRN Aspirin Adult Low Strength (Aspirin) 81 Mg Tabdr 40.5 Mg PO DAILY Mapap (Acetaminophen) 325 Mg Tab 325 Mg PO Q4-6H PRN Dulcolax DR (Bisacodyl) 5 Mg Tabdr 5 Mg PO DAILY PRN Ibuprofen 200 Mg Cap 200 Mg PO Q6H PRN Atorvastatin (Atorvastatin Calcium) 20 Mg Tab 10 Mg PO DAILY Metoprolol Tartrate 25 Mg Tab 12.5 Mg PO BID Milk of Magnesia Liq (Magnesium Hydroxide) 400 Mg/5 Ml Susp 30 Ml PO DAILY Active Ordered Medications Current Medications Medications (Trade) Dose Ordered Sig/[place] Route Start Time Stop Time Status Last Admin (NS Flush) 2 ml UNSCH PRN IV FLUSH 01/06/18 20:15 (NS Flush) 2 ml BID IV FLUSH 01/06/18 21:00 01/07/18 08:16 (Narcan Inj) 0.4 mg UNSCH PRN IV PUSH 01/06/18 20:15 (Morphine Inj) 2 mg Q3H PRN IV PUSH 01/06/18 20:15 (Flexeril) 5 mg Q8H PRN PO 01/06/18 23:00 01/07/18 01:11 (Pill Splitter) 1 ea UNSCH PRN OTHER 01/06/18 23:00 (Morphine Inj) 4 mg Q3H PRN IV PUSH 01/07/18 01:00 01/07/18 01:12 (Lipitor) 10 mg DAILY PO 01/07/18 09:00 01/07/18 08:17 (Lopressor) 12.5 mg BID PO 01/07/18 01:15 01/07/18 08:16 (Aspirin Chew) 40.5 mg DAILY CHEW 01/07/18 09:00 01/07/18 08:17 Family History Non contributory Social History She lives alone Has RN assistance 5 hrs per day Uses walker Full code (Frances Nash) Physical Exam Vital Signs Vital Signs Date Time Temp Pulse Resp B/P (MAP) Pulse Ox O2 Delivery O2 Flow Rate FiO2 01/07/18 08:20 67 17 01/07/18 08:20 98.4 67 17 139/65 (89) 95 Room Air 01/07/18 05:31 66 142/64 (90) 96 Room Air 01/07/18 00:46 64 148/72 (97) 97 Room Air 01/06/18 22:18 74 163/76 (105) 97 Room Air 01/06/18 18:13 24 01/06/18 17:21 66 131/63 (85) 98 Room Air 01/06/18 14:45 98.0 68 18 146/92 (110) 98 Physical Exam GENERAL: This is a well-nourished, well-developed patient, ambulating slowly with walker SKIN: No rashes, ecchymoses or lesions. Cool and dry. HEAD: Atraumatic. Normocephalic. EYES: Pupils equal round and reactive. ENT: Nose without bleeding, purulent drainage or septal hematoma. Airway patent. NECK: Trachea midline. No JVD or lymphadenopathy. CARDIOVASCULAR: RRR without murmurs, gallops, or rubs. 1+ pedal edema RESPIRATORY: Clear to auscultation. Breath sounds equal bilaterally. No wheezes , rales, or rhonchi. GASTROINTESTINAL: Abdomen soft, non-tender, nondistended. CVA tenderness. No guarding. MUSCULOSKELETAL: Lower back tenderness to palpation. No calf tenderness. NEUROLOGICAL: Awake and alert. Motor and sensory grossly within normal limits. . Normal speech. Laboratory Laboratory Tests Test 01/06/18 17:44 01/06/18 18:00 White Blood Count 6.9 Red Blood Count 3.64 Hemoglobin 11.7 Hematocrit 34.5 Mean Corpuscular Volume 94.6 Mean Corpuscular Hemoglobin 32.2 Mean Corpuscular Hemoglobin Concent 34.1 Red Cell Distribution Width 13.9 Platelet Count 254 Mean Platelet Volume 7.0 Neutrophils (%) (Auto) 61.4 Lymphocytes (%) (Auto) 25.5 Monocytes (%) (Auto) 10.8 Eosinophils (%) (Auto) 1.8 Basophils (%) (Auto) 0.5 Neutrophils # (Auto) 4.2 Lymphocytes # (Auto) 1.8 Monocytes # (Auto) 0.7 Eosinophils # (Auto) 0.1 Basophils # (Auto) 0.0 CBC Comment DIFF FINAL Differential Comment Prothrombin Time 10.7 Prothromb Time International Ratio 1.1 Activated Partial Thromboplast Time 25.0 Blood Urea Nitrogen 21 Creatinine 1.27 Random Glucose 114 Total Protein 7.4 Albumin 3.5 Calcium Level 9.7 Alkaline Phosphatase 97 Aspartate Amino Transf (AST/SGOT) 27 Alanine Aminotransferase (ALT/SGPT) 25 Total Bilirubin 0.5 Sodium Level 132 Potassium Level 4.0 Chloride Level 97 Carbon Dioxide Level 26.9 Anion Gap 8 Estimat Glomerular Filtration Rate 40 Urine Color DARK-YELLOW Urine Turbidity HAZY Urine pH 6.5 Urine Specific [place] 1.014 Urine Protein 30 Urine Glucose (UA) NEG Urine Ketones NEG Urine Occult Blood SMALL Urine Nitrite NEG Urine Bilirubin NEG Urine Urobilinogen LESS THAN 2.0 Urine Leukocyte Esterase LARGE Urine RBC 8 Urine WBC Urine WBC Clumps FEW Urine Squamous Epithelial Cells 1 Urine Amorphous Sediment RARE Urine Bacteria MOD Microscopic Urinalysis Comment CULTURE INDICATED Date/Time Source Procedure Growth Status 01/06/18 18:00 Urine Clean Catch Urine Culture Pending Received (Frances Nash COLLATERAL SPECIALIST) Result Diagram: 01/06/18 1744 01/06/18 1744 Imaging Last 72 hours Impressions Thoracic Spine CT 01/06/18 0000 Signed Impressions: Service Date/Time: Saturday, January 06, 2018 19:05 - CONCLUSION: 1. Mild and potentially acute compression fracture of T10 without associated foraminal or spinal stenosis. 2. Moderate severity chronic appearing compression fracture of T11. Abran Burnett MD Lumbar Spine CT 01/06/18 0000 Signed Impressions: Service Date/Time: Saturday, January 06, 2018 19:05 - CONCLUSION: 1. Chronic compression deformities of each lumbar vertebra as above without fracture-associated foraminal or spinal stenosis. No acute fracture demonstrated. No subluxation. 2. Multilevel degenerative changes as above. Abran Burnett MD Chest X-Ray 01/06/18 0000 Signed Impressions: Service Date/Time: Saturday, January 06, 2018 17:06 - CONCLUSION: No acute disease. Dawson Farris MD (Frances Nash) Assessment and Plan Problem List: (1) CKD (chronic kidney disease) stage 3, GFR 30-59 ml/min ICD Codes: N18.3 - Chronic kidney disease, stage 3 (moderate) Plan: Renal function is at baseline Creatinine 1.2 today Obtain US to ensure no obstruction, she has difficulty voiding and feels she is retaining Avoid nephrotoxic agents, Ibuprofen is on her home med list Tolerating oral fluids Stable from renal perspective (2) UTI (lower urinary tract infection) ICD Codes: N39.0 - UTI (lower urinary tract infection) Status: Acute Plan: Urology has been consulted May need ID assistance Pending culture reports. given Zosyn (3) Back pain ICD Codes: M54.9 - Back pain Status: Acute Plan: Back brace in place PT/OT has been initiated Muscle relaxers and pain medications PRN. (Frances Nash) Assessment and Plan patient was seen and examined. Agree with above assessment and plan. We will see her as needed. She can be discharged from renal standpoint. (Maxx Logan MD) Frances Nash Jan 07, 2018 10:29 Maxx Logan MD Jan 07, 2018 10:57
[2018-01-07] MEDS: MORPHINE SULFATE 2 MG/ML INJ IV PUSH PRN ×3 (10:44→20:32)
[2018-01-07 12:15] LABS: AUTOMATED NEUTROPHIL # 4.8 TH/MM3 (1.8-7.7); BASOPHIL % 0.4 % (0.0-2.0); EOSINOPHIL # 0.1 TH/MM3 (0-0.4); EOSINOPHIL % 1.8 % (0.0-4.0); HEMATOCRIT 33.4 % (35.0-46.0); HEMOGLOBIN 11.7 GM/DL (11.6-15.3); LYMPHOCYTE # 1.5 TH/MM3 (1.0-4.8); MEAN CORPUSCULAR HEMOGLOBIN 33.1 PG (27.0-34.0); MEAN CORPUSCULAR HGB CONC 34.9 % (32.0-36.0); MEAN PLATELET VOLUME 7.1 FL (7.0-11.0); MONO % 10.3 % (0.0-8.0); MONOCYTE # 0.7 TH/MM3 (0-0.9); NEUT % 66.5 % (16.0-70.0); PLATELET COUNT 267 TH/MM3 (150-450); RED BLOOD COUNT 3.52 MIL/MM3 (4.00-5.30); RED CELL DISTRIBUTION WIDTH 13.9 % (11.6-17.2); WHITE BLOOD COUNT 7.2 TH/MM3 (4.0-11.0)
[2018-01-07 12:35] LABS: BICARBONATE 24.2 MEQ/L (21.0-32.0); CALCIUM 9.3 MG/DL (8.5-10.1); CREATININE 1.18 MG/DL (0.50-1.00)
--- NOTE | 2018-01-07 12:35 | RADRPT ---
EXAM DATE/TIME: 01/07/2018 11:16 [place] COMPARISON: No previous studies available for comparison. INDICATIONS : Increased BUN/Creatinine. MEDICAL HISTORY : Myocardial infarction. Hypercholesterolemia. Hypertension. TIA. Renal failure. Skin cancer. Arthritis . SURGICAL HISTORY : Tonsillectomy. Hysterectomy. Abdominal aortic aneurysm repair. Cataract surgery. Coronary stent. Card iac catherization. Appendectomy. Bladder suspension. Sinus surgery. ENCOUNTER: Initial ACUITY: 1 day PAIN SCORE: 0/10 LOCATION: Bilateral flank MEASUREMENTS: RIGHT KIDNEY: 8.2 x 4.7 x 4.1 cm LEFT KIDNEY: 9.6 x 4.7 x 4.3 cm FINDINGS: RIGHT KIDNEY: Renal cortex is normal in thickness and increased echotexture. No hydronephrosis, stone, or mass. LEFT KIDNEY: Renal cortex is normal in thickness and increased echotexture. No hydronephrosis, stone, or mass. BLADDER: Within normal limits given the degree of distension. Minimal layering debris CONCLUSION: 1. Kidneys are echogenic which can be seen with medical renal disease. 2. Minimal debris within the bladder, nonspecific. Theodore Montez MD on January 07, 2018 at 12:32 Board Certified Radiologist. This report was verified electronically.
--- NOTE | 2018-01-07 15:56 | HHI.PR ---
Subjective Remarks Patient is in bed. She has back pain however is controlled with pain medications. Says she thinks she has a UTI again. No fever or chills. No nausea vomiting no diarrhea or constipation. She is able to eat fairly well. Says she has some lower extremity edema yesterday. Objective Vitals Vital Signs Date Time Temp Pulse Resp B/P (MAP) Pulse Ox O2 Delivery O2 Flow Rate FiO2 01/07/18 13:31 97.5 69 16 125/58 (80) 95 01/07/18 13:25 01/07/18 12:51 62 20 118/57 (77) 94 Room Air 01/07/18 11:00 20 01/07/18 08:20 67 17 01/07/18 08:20 98.4 67 17 139/65 (89) 95 Room Air 01/07/18 05:31 66 142/64 (90) 96 Room Air 01/07/18 00:46 64 148/72 (97) 97 Room Air 01/06/18 22:18 74 163/76 (105) 97 Room Air 01/06/18 18:13 24 01/06/18 17:21 66 131/63 (85) 98 Room Air I/O 01/06/18 01/06/18 01/06/18 01/07/18 01/07/18 01/07/18 06:59 14:59 22:59 06:59 14:59 22:59 Intake Total 240 ml Output Total 450 ml 250 ml Balance -450 ml -10 ml Intake Oral 240 ml Output Urine Total 450 ml 250 ml # Voids 3 2 Result Diagram: 01/07/18 1113 01/07/18 1113 Imaging Last Impressions Renal Ultrasound 01/07/18 0000 Signed Impressions: Service Date/Time: Sunday, January 07, 2018 11:16 - CONCLUSION: 1. Kidneys are echogenic which can be seen with medical renal disease. 2. Minimal debris within the bladder, nonspecific. Theodore Montez MD Thoracic Spine CT 01/06/18 0000 Signed Impressions: Service Date/Time: Saturday, January 06, 2018 19:05 - CONCLUSION: 1. Mild and potentially acute compression fracture of T10 without associated foraminal or spinal stenosis. 2. Moderate severity chronic appearing compression fracture of T11. Abran Burnett MD Lumbar Spine CT 01/06/18 0000 Signed Impressions: Service Date/Time: Saturday, January 06, 2018 19:05 - CONCLUSION: 1. Chronic compression deformities of each lumbar vertebra as above without fracture-associated foraminal or spinal stenosis. No acute fracture demonstrated. No subluxation. 2. Multilevel degenerative changes as above. Abran Burnett MD Chest X-Ray 01/06/18 0000 Signed Impressions: Service Date/Time: Saturday, January 06, 2018 17:06 - CONCLUSION: No acute disease. Dawson Farris MD Objective Remarks GENERAL: This is a well-nourished, well-developed patient, in apparent pain CARDIOVASCULAR: Regular rate and rhythm without murmurs, gallops, or rubs. RESPIRATORY: Clear to auscultation. Breath sounds equal bilaterally. No wheezes , rales, or rhonchi. GASTROINTESTINAL: Abdomen soft, non-tender, nondistended. CVA tenderness. No guarding. MUSCULOSKELETAL: Lower back tenderness to palpation. No calf tenderness. NEUROLOGICAL: Awake and alert. Motor and sensory grossly within normal limits. . Normal speech. A/P Problem List: (1) UTI (lower urinary tract infection) ICD Code: N39.0 - UTI (lower urinary tract infection) Status: Acute (2) Vertebral compression fracture ICD Code: M48.50XA - Collapsed vertebra, not elsewhere classified, site unspecified, initial encounter for fracture Status: Acute (3) Severe back pain ICD Code: M54.9 - Dorsalgia, unspecified Status: Acute Assessment and Plan 87 y/o female with a history of chronic UTIs, spinal fractures,HTN, and HLD presented to the ED with complaints of severe back pain and dysuria. Compression fractures, possibly acute on chronic, T10, T11, with intractable severe pain Thoracic spine CT reviewed and shows mild and potentially acute compression fracture of T12 without associated for minimal or spinal stenosis, chronic appearing compression fracture of T11 -Patient wishes not to see Dr. Barrow, consult neurosurgery for recommendations -Patient requiring multiple doses of IV morphine for pain management -Add Flexeril by mouth for pain management UTI, acute on chronic UA shows a large leukocyte esterase -Urine culture pending -Empirically treat with IV antibiotics Zosyn -Consult nephrology, patient follows with Dr. Weir Hypertension, chronic, currently elevated likely due to pain -Continue home medications metoprolol, monitor vitals, will order prn's as needed DVT prophylaxis: SCDs Discussed Condition With Patient, nurse Problem Qualifiers (1) Vertebral compression fracture: Qualified Codes: M48.50XS - Collapsed vertebra, not elsewhere classified, site unspecified, sequela of fracture Leia Orta MD Jan 07, 2018 15:56
--- NOTE | 2018-01-07 16:58 | HHI.DCPOC ---
Discharge Care Plan Diagnosis: (1) Pseudotumor cerebri Additional Problems neck pain, headache Goals to Promote Your Health * To prevent worsening of your condition and complications * To maintain your health at the optimal level Directions to Meet Your Goals Take your medications as prescribed Follow your dietary instruction Follow activity as directed Keep your appointments as scheduled Take your immunizations and boosters as scheduled If your symptoms worsen call your PCP, if no PCP go to Urgent Care Center or Emergency Room Smoking is Dangerous to Your Health. Avoid second hand smoke Call the 24-hour hour crisis hotline for domestic abuse at Jhonny Leyva MD Jan 07, 2018 16:58
[2018-01-07 20:29] LABS: AMORPHOUS SEDIMENT, URINE RARE; BILIRUBIN, URINE NEG (NEG); BLOOD, URINE TRACE (NEG); GLUCOSE,URINE NEG (NEG); KETONE, URINE NEG (NEG); NITRITE,URINE NEG (NEG); PH, URINE 6.5 (5.0-8.5); URINE COLOR YELLOW (YELLW/STRAW); URINE LEUKOCYTE ESTERASE LARGE (NEG)
[2018-01-07] MEDS: PIPERACIL-TAZO 3.375 GM PREMIX 50 ML IV SCH (20:32)
--- NOTE | 2018-01-07 21:25 | PD.CONS ---
History of Present Illness Service Neurosurgery Consult Requested By Medicine service Reason for Consult Thoracic spine compression fracture Primary Care Physician Paulie Mancilla MD Diagnoses: History of Present Illness 87-year-old female who states that she has had multiple lumbar compression fractures in the past couple of years. This been treated conservatively thus far. She has had previous steroid injections per Dr. Tyler for chronic back pain, most recently in September 2017. She states that a month ago she developed acute onset of much more severe pain in the midline thoracolumbar region with radiation to the right and left flank and primarily right greater than left lateral hip and groin region. She has undergone an outpatient MRI which has revealed a acute thoracic spine compression fracture. She presented to the emergency room due to progression of severe intractable pain, unable to ambulate safely and take care of herself. She states that she lives alone. She has had some numbness in the distal lower extremities which she attributes to neuropathy. This has been present over the past 1 or 2 months. She does indicate increased edema in the distal lower extremities over the past 2 or 3 weeks. She has a history of chronic UTIs and has been seen by urology during this hospitalization. Her initial urinalysis revealed greater than 100,000 CFU/mL gram-negative rods with industrial cultures positive Escherichia coli. She has had mild dysuria. No fevers or chills or sweats. Review of Systems Constitutional: COMPLAINS OF: Fatigue, DENIES: Fever, Chills, Dizziness Eyes: DENIES: Blurred vision, Diplopia Ears, nose, mouth, throat: DENIES: Hearing loss, Vertigo Respiratory: DENIES: Shortness of breath Cardiovascular: DENIES: Chest pain, Palpitations Gastrointestinal: DENIES: Abdominal pain, Diarrhea, Nausea Musculoskeletal: COMPLAINS OF: Joint Swelling, Back pain, DENIES: Joint pain Neurologic: COMPLAINS OF: Abnormal gait, DENIES: Headache Psychiatric: COMPLAINS OF: Anxiety Past Family Social History Allergies: Coded Allergies: Iodinated Contrast- Oral and IV Dye (Verified Allergy, Severe, UNKOWN, ) azithromycin (Verified Allergy, Severe, irregular heart rate, 12/14/17) codeine (Unverified Allergy, Severe, 10/24/17) gabapentin (Verified Allergy, Severe, Fever, 10/24/17) levofloxacin (Verified Allergy, Severe, Insomnia, 10/24/17) NAUSEA meperidine (Unverified Allergy, Severe, NAUSEA, 10/24/17) baclofen (Unverified Allergy, Intermediate, Swelling, 10/24/17) ciprofloxacin (Unverified Allergy, Intermediate, Insomnia, 10/24/17) nitrofurantoin (Verified Allergy, Intermediate, fevers, 12/14/17) phenazopyridine (Verified Allergy, Intermediate, n/v, 12/14/17) tramadol (Verified Allergy, Intermediate, Hallucinations, 12/14/17) cefaclor (Verified Allergy, Unknown, 12/14/17) cephalexin (Verified Allergy, Unknown, 12/14/17) cephradine (Verified Allergy, Unknown, 12/14/17) iodine (Unverified Allergy, Unknown, UNKNOWN, 10/24/17) HAS TESTED POSITIVE FOR ALLERGY TO IODINE BUT NO KNOWN EXPOSURE lidocaine (Unverified Allergy, Unknown, 10/24/17) potassium iodide (Unverified Allergy, Unknown, UNKNOWN, 10/24/17) HAS TESTED POSITIVE FOR ALLERGY TO IODINE BUT NO KNOWN EXPOSURE povidone-iodine (Unverified Allergy, Unknown, UNKNOWN, 10/24/17) HAS TESTED POSITIVE FOR ALLERGY TO IODINE BUT NO KNOWN EXPOSURE prednisone (Verified Allergy, Unknown, 12/14/17) sodium iodide (Unverified Allergy, Unknown, UNKNOWN, 10/24/17) HAS TESTED POSITIVE FOR ALLERGY TO IODINE BUT NO KNOWN EXPOSURE sodium iodide (Unverified Allergy, Unknown, UNKNOWN, 10/24/17) HAS TESTED POSITIVE FOR ALLERGY TO IODINE BUT NO KNOWN EXPOSURE epinephrine (Unverified Adverse Reaction, Severe, TACHYCARDIA/ SYNCOPE, ) Past Medical History Hypertension Dyslipidemia Previous [place] Chronic UTIs Chronic back pain Past Surgical History Cardiac stent Hysterectomy AAA repair Reported Medications Reported Meds & Active Scripts Active Reported [place] (Hydrocodone-Acetaminophen) 5 Mg-325 Mg Tab 1 Tab PO Q4-6H PRN Aspirin Adult Low Strength (Aspirin) 81 Mg Tabdr 40.5 Mg PO DAILY Mapap (Acetaminophen) 325 Mg Tab 325 Mg PO Q4-6H PRN Dulcolax DR (Bisacodyl) 5 Mg Tabdr 5 Mg PO DAILY PRN Ibuprofen 200 Mg Cap 200 Mg PO Q6H PRN Atorvastatin (Atorvastatin Calcium) 20 Mg Tab 10 Mg PO DAILY Metoprolol Tartrate 25 Mg Tab 12.5 Mg PO BID Milk of Magnesia Liq (Magnesium Hydroxide) 400 Mg/5 Ml Susp 30 Ml PO DAILY PRN Family History Negative cancer, diabetes, neurologic disease Social History States she lives alone. No alcohol or tobacco use Physical Exam Vital Signs Vital Signs Date Time Temp Pulse Resp B/P (MAP) Pulse Ox O2 Delivery O2 Flow Rate FiO2 01/07/18 20:37 12 01/07/18 20:14 71 18 114/55 (74) 93 01/07/18 18:03 98.2 70 138/65 (89) 94 01/07/18 17:00 70 01/07/18 13:31 97.5 69 16 125/58 (80) 95 01/07/18 13:25 01/07/18 12:51 62 20 118/57 (77) 94 Room Air 01/07/18 08:20 67 17 01/07/18 08:20 98.4 67 17 139/65 (89) 95 Room Air 01/07/18 05:31 66 142/64 (90) 96 Room Air 01/07/18 00:46 64 148/72 (97) 97 Room Air 01/06/18 22:18 74 163/76 (105) 97 Room Air Physical Exam GENERAL: This is a well-nourished, well-developed patient, no apparent distress. SKIN: No abrasions, contusion, rash noted. Skin warm and dry. HEAD: Atraumatic. Normocephalic. No temporal or scalp tenderness. EYES: Sclerae are clear and nonicteric ENT: No facial edema or ecchymosis. No periorbital edema. No CSF otorrhea or rhinorrhea. No palpable facial fracture or deformity. NECK: Trachea midline. No cervical spine tenderness. CARDIOVASCULAR: Regular rate and rhythm without murmurs, gallops, or rubs. RESPIRATORY: Clear to auscultation. Breath sounds equal bilaterally. No wheezes , rales, or rhonchi. GASTROINTESTINAL: Abdomen soft, non-tender, nondistended. No hepato-splenomegaly , or palpable masses. No guarding. MUSCULOSKELETAL: Moderate left greater than right distal lower extremity edema. No cyanosis. Posterior tibial pulses are not palpable. Positive tenderness midline thoracolumbar region. Complaining of pain in this region with proximal lower extremity motor testing NEUROLOGICAL: Awake and alert Oriented X 3 Speech is clear Conversant and appropriate Follow simple commands well Answers questions appropriately Reasonable judgment and insight Recent and remote memory are intact No evidence of anxiety or depression Pupils are equal and reactive to accommodation. Extra-ocular movements, visual ann to confrontation, facial sensorimotor, tongue, palate, sternocleidomastoid testing, hearing to finger rub testing, and bilateral shoulder shrug are all intact. Sensation is intact to light touch in all extremities Strength normal major flexion and extension groups all extremities Margarette's absent bilaterally No ankle clonus Plantar responses absent bilateral Fine motor movements intact upper extremities Laboratory Laboratory Tests Test 01/07/18 11:13 01/07/18 19:48 White Blood Count 7.2 Red Blood Count 3.52 Hemoglobin 11.7 Hematocrit 33.4 Mean Corpuscular Volume 95.0 Mean Corpuscular Hemoglobin 33.1 Mean Corpuscular Hemoglobin Concent 34.9 Red Cell Distribution Width 13.9 Platelet Count 267 Mean Platelet Volume 7.1 Neutrophils (%) (Auto) 66.5 Lymphocytes (%) (Auto) 21.0 Monocytes (%) (Auto) 10.3 Eosinophils (%) (Auto) 1.8 Basophils (%) (Auto) 0.4 Neutrophils # (Auto) 4.8 Lymphocytes # (Auto) 1.5 Monocytes # (Auto) 0.7 Eosinophils # (Auto) 0.1 Basophils # (Auto) 0.0 CBC Comment DIFF FINAL Differential Comment Blood Urea Nitrogen 18 Creatinine 1.18 Random Glucose 144 Calcium Level 9.3 Sodium Level 133 Potassium Level 4.1 Chloride Level 99 Carbon Dioxide Level 24.2 Anion Gap 10 Estimat Glomerular Filtration Rate 43 Urine Color YELLOW Urine Turbidity HAZY Urine pH 6.5 Urine Specific Provencal 1.013 Urine Protein 30 Urine Glucose (UA) NEG Urine Ketones NEG Urine Occult Blood TRACE Urine Nitrite NEG Urine Bilirubin NEG Urine Urobilinogen LESS THAN 2.0 Urine Leukocyte Esterase LARGE Urine RBC 4 Urine WBC Urine Amorphous Sediment RARE Date/Time Source Procedure Growth Status 01/06/18 18:00 Urine Clean Catch Urine Culture - Preliminary Gram Negative [place] Resulted Result Diagram: 01/07/18 1113 01/07/18 1113 Imaging 12/06/2017 MRI lumbar spine without contrast Stand up MRI Imaging images are revealed. The study reveals acute T11 compression fracture with approximately 30% loss of central height without significant retropulsion. There are chronic compression fractures at the L1, L2, L3, L4 levels without significant retropulsion. Positive loss of lumbar lordosis. Positive disc displacement at the T12-L1, L1-L2, L2-3 levels without significant canal stenosis or nerve impingement. Also disc displacement at the L3-4 and L4-5 level with some narrowing of the lateral recess and neural foramen. Central L5- S1 disc displacement without significant canal stenosis. Renal Ultrasound 01/07/18 0000 Signed Impressions: Service Date/Time: Sunday, January 07, 2018 11:16 - CONCLUSION: 1. Kidneys are echogenic which can be seen with medical renal disease. 2. Minimal debris within the bladder, nonspecific. Theodore Montez MD Thoracic Spine CT 01/06/18 0000 Signed Impressions: Service Date/Time: Saturday, January 06, 2018 19:05 - CONCLUSION: 1. Mild and potentially acute compression fracture of T10 without associated foraminal or spinal stenosis. 2. Moderate severity chronic appearing compression fracture of T11. Abran Burnett MD Lumbar Spine CT 01/06/18 0000 Signed Impressions: Service Date/Time: Saturday, January 06, 2018 19:05 - CONCLUSION: 1. Chronic compression deformities of each lumbar vertebra as above without fracture-associated foraminal or spinal stenosis. No acute fracture demonstrated. No subluxation. 2. Multilevel degenerative changes as above. Abran Burnett MD Chest X-Ray 01/06/18 0000 Signed Impressions: Service Date/Time: Saturday, January 06, 2018 17:06 - CONCLUSION: No acute disease. Dawson Farris MD Assessment and Plan Assessment and Plan Impression: 1. Acute T11 compression fracture with persistent severe intractable pain. 2. Multiple chronic lumbar compression fractures with loss of lordosis. 3. Chronic UTI 4. History coronary artery disease Plan: Findings were discussed at length with the patient. I spent approximately 45 minutes with her extensively reviewing her history, answering numerous questions and discussing her findings and treatment options along with prognosis. She states that her pain is been quite severe and she has not been able to ambulate more than a few feet due to the severe pain. She does not feel that she has had any improvement in the past month with conservative treatment. She wishes to proceed with T11 kyphoplasty. The procedure was discussed. Risks and possible complications fully explained including risk of anesthesia, infection, bleeding, spinal fluid leak, nerve injury or spinal cord injury, pain and weakness numbness paralysis. She understands that there is a risk of further compression even with kyphoplasty. The risk of cement extravasation with potential neurologic compromise has been discussed. All questions answered She appears to understand the above and wishes to proceed with surgery on . Discussed with medicine service regarding chronic UTI. Jhonny Leyva MD Jan 07, 2018 21:25
[2018-01-07] MEDS ORDERED: SODIUM CHLORID 0.9% 500 ML IV PRN (23:45)
[2018-01-07] MEDS ORDERED: LACTATED RINGER'S 1000 ML IV PRN (23:45)
[2018-01-08] VITALS (8 sets, daily range): BP systolic 116–166; BP diastolic 51–76; PULSE 62–71; RESP 17–19; TEMP 95.8–98.3; O2SAT 95–99
[2018-01-08] MEDS: PIPERACIL-TAZO 3.375 GM PREMIX 50 ML IV SCH ×4 (04:19→19:49)
[2018-01-08] MEDS: MORPHINE SULFATE 2 MG/ML INJ IV PUSH PRN (05:55)
[2018-01-08] MEDS ORDERED: LIDOCAINE 1%/EPINEPHrine 1:100,000 SOLN 30 ML VIAL ONE (07:16)
[2018-01-08 08:15] LABS: AUTOMATED NEUTROPHIL # 3.5 TH/MM3 (1.8-7.7); BASOPHIL % 0.7 % (0.0-2.0); EOSINOPHIL # 0.2 TH/MM3 (0-0.4); EOSINOPHIL % 2.8 % (0.0-4.0); HEMATOCRIT 33.9 % (35.0-46.0); HEMOGLOBIN 11.6 GM/DL (11.6-15.3); LYMPH % 28.6 % (9.0-44.0); LYMPHOCYTE # 1.8 TH/MM3 (1.0-4.8); MEAN CELL VOLUME 94.5 FL (80.0-100.0); MEAN CORPUSCULAR HEMOGLOBIN 32.3 PG (27.0-34.0); MEAN CORPUSCULAR HGB CONC 34.2 % (32.0-36.0); MEAN PLATELET VOLUME 6.5 FL (7.0-11.0); MONO % 11.3 % (0.0-8.0); MONOCYTE # 0.7 TH/MM3 (0-0.9); NEUT % 56.6 % (16.0-70.0); PLATELET COUNT 208 TH/MM3 (150-450); RED BLOOD COUNT 3.59 MIL/MM3 (4.00-5.30); WHITE BLOOD COUNT 6.2 TH/MM3 (4.0-11.0)
[2018-01-08 08:43] LABS: CREATININE 1.06 MG/DL (0.50-1.00)
[2018-01-08] MEDS: SODIUM CHLORIDE 0.9% FLUSH 10 ML FLUSH IV FLUSH SCH ×2 (09:00→19:49)
[2018-01-08] MEDS: METOPROLOL TARTRATE 25 MG TAB PO SCH ×2 (09:00→19:49)
[2018-01-08] MEDS ORDERED: ACETAMINOPHEN 1000 MG/100 ML 100 ML IV ONE (09:00)
[2018-01-08] MEDS ORDERED: LIDOCAINE HCL 1% PF 5 ML AMPULE ONE (09:46)
[2018-01-08] MEDS ORDERED: LIDOCAINE HCL 1% 50 ML VIAL ONE (09:49)
[2018-01-08] MEDS ORDERED: *morphine SULFATE 8 MG/ML PERIprocedure ONLY ONE ×3 (10:51→12:28)
[2018-01-08] MEDS ORDERED: DO NOT ADM ANY ANTICOAGULANT DRUGS PRN (11:00)
--- NOTE | 2018-01-08 11:10 | PD.OP ---
Operative Report Date of Surgery: Jan 08, 2018 Preoperative Diagnosis: (1) Vertebral compression fracture Acute T11 compression fracture Postoperative Diagnosis: (1) Vertebral compression fracture Acute T11 compression fracture Procedure: T11 kyphoplasty with bilateral balloon placement. Use of intraoperative biplane are fluoroscopic navigation for kyphoplasty needle , bleeding and cement placement Anesthesia: Gen. endotracheal Surgeon: Jhonny Leyva Sheriff Officer(s): None Operation and Findings: Procedure in detail: Patient was brought him to the operating room and general endotracheal anesthesia induced without difficulty. Lines were established per anesthesia. FREDY hose and sequential compression devices were in place The patient was placed in prone position on the [facility] Alcon table with the side bolsters and all extremities appropriately padded The thoracic and lumbar regions were prepped and draped in a sterile fashion Appropriate timeout procedure was performed without personal present and in agreement AP and lateral C-arm images were used throughout the procedure to determine the kyphoplasty needle placement and to monitor the balloon dilation and cement injection. The procedure was performed at the T11 level. Using the C-arm imaging and preoperative imaging studies to determine the entry point and trajectory, the kyphoplasty needle was advanced on each side through a small skin incision infiltrated with 1% Xylocaine. The needle was docked at the superior lateral quadrant of the bilateral T11 pedicles and advanced into the vertebral body taking care not to traverse the medial aspect of the pedicle on AP imaging until the tip of the needle was approximately 30% into the vertebral body on lateral imaging. The balloons were then inflated with C-arm monitoring. The cement was mixed and allowed to harden to sufficient consistency for injection. The kyphoplasty balloons were deflated and removed and the cement was injected through the needle cannula on each side using C-arm monitoring. Once the appropriate filling of the vertebral body void was accomplished, the needle cannulas were removed, with the inner stylette used to tamp down the cement into the body as the cannula was withdrawn. Final AP and lateral C-arm images were obtained and felt to be satisfactory. The small incisions were closed with Mastisol and Steri-Strips with a Primapore dressing. The patient was taken to recovery room stable condition. There was no significant blood loss. No specimen was sent to pathology. Jhonny Leyva MD Jan 08, 2018 11:10
[2018-01-08] MEDS ORDERED: ePHEDrine/NS 25 MG/5 ML SYRINGE IV ONE (12:00)
[2018-01-08] MEDS ORDERED: ROCURONIUM INJ 50 MG/5 ML SYRINGE IV PUSH ONE (12:00)
[2018-01-08] MEDS ORDERED: LIDOCAINE HCL 1% PF 5 ML SYRINGE OTHER ONE (12:00)
[2018-01-08] MEDS ORDERED: LACTATED RINGER'S 1000 ML INJ 1,000 ML IV ONE (12:00)
[2018-01-08] MEDS ORDERED: GLYCOPYRROLATE 1 MG/5 ML SYRINGE IV PUSH ONE (12:00)
[2018-01-08] MEDS ORDERED: PROPOFOL 200 MG/20 ML AMP IV ONE (12:00)
[2018-01-08] MEDS ORDERED: NEOSTIGMINE 5 MG/5 ML SYRINGE IV PUSH ONE (12:00)
[2018-01-08] MEDS ORDERED: ONDANSETRON HCL 4 MG/2 ML VIAL IV ONE (12:00)
[2018-01-08] MEDS ORDERED: PHENYLEPH/NS 1000 MCG/10 ML SYR IV ONE (12:00)
--- NOTE | 2018-01-08 12:40 | RADRPT ---
EXAM DATE/TIME: 01/08/2018 10:20 [place] COMPARISON: No previous studies available for comparison. INDICATIONS : T11 kyphoplasty. MEDICAL HISTORY : Myocardial infarction. Hypercholesterolemia. Hypertension. TIA. Renal failure. Skin cancer. Arthritis . SURGICAL HISTORY : Tonsillectomy. Hysterectomy. Abdominal aortic aneurysm repair. Cataract surgery.Coronary stent. Cardi ac catherization. Appendectomy. Bladder suspension. Sinus surgery. ENCOUNTER: Subsequent ACUITY: 2 days PAIN SCORE: Non-responsive. LOCATION: Thoracic spine. FINDINGS: Frontal and lateral ontal view of the thoracic region recorded digitally in the operating room using C-arm during kyphoplasty. CONCLUSION: Intraoperative images. Silvio Diaz MD on January 08, 2018 at 12:38 Board Certified Radiologist. This report was verified electronically.
[2018-01-08] MEDS: CYCLOBENZAPRINE HCL 10 MG TAB PO PRN (15:07)
--- NOTE | 2018-01-08 23:24 | EKG ---
Date Performed: 01/08/2018 Time Performed: 04:27:27 PTAGE: 87 years EKG: Sinus rhythm WITH FIRST DEGREE AV BLOCK NONSPECIFIC T-WAVE ABNORMALITY ABNORMAL ECG PREVIOUS TRACING : 12/09/2013 18.44 Since the previous tracing, no significant change noted DOCTOR: Yousif Aguilar Interpretating Date/Time 01/08/2018 23:23:21
[2018-01-09] VITALS (8 sets, daily range): BP systolic 109–139; BP diastolic 59–68; PULSE 64–76; RESP 17–18; TEMP 96.8–98; O2SAT 93–96
[2018-01-09] MEDS: PIPERACIL-TAZO 3.375 GM PREMIX 50 ML IV SCH ×4 (02:49→19:45)
[2018-01-09] MEDS: SODIUM CHLORIDE 0.9% FLUSH 10 ML FLUSH IV FLUSH SCH ×2 (09:00→19:45)
[2018-01-09] MEDS: MORPHINE SULFATE 2 MG/ML INJ IV PUSH PRN ×2 (09:06→19:49)
[2018-01-09] MEDS: METOPROLOL TARTRATE 25 MG TAB PO SCH ×2 (09:06→19:48)
[2018-01-09] MEDS: CYCLOBENZAPRINE HCL 10 MG TAB PO PRN ×2 (09:21→19:45)
--- NOTE | 2018-01-09 11:11 | HHI.NSPN ---
History Chief Complaint: Hip pain going down the legs. Interval History 01/07: 87-year-old female who states that she has had multiple lumbar compression fractures in the past couple of years. This been treated conservatively thus far. She has had previous steroid injections per Dr. Tyler for chronic back pain, most recently in September 2017. She states that a month ago she developed acute onset of much more severe pain in the midline thoracolumbar region with radiation to the right and left flank and primarily right greater than left lateral hip and groin region. She has undergone an outpatient MRI which has revealed a acute thoracic spine compression fracture. She presented to the emergency room due to progression of severe intractable pain, unable to ambulate safely and take care of herself. She states that she lives alone. She has had some numbness in the distal lower extremities which she attributes to neuropathy. This has been present over the past 1 or 2 months. She does indicate increased edema in the distal lower extremities over the past 2 or 3 weeks. She has a history of chronic UTIs and has been seen by urology during this hospitalization. Her initial urinalysis revealed greater than 100,000 CFU/mL gram-negative rods with industrial cultures positive Escherichia coli. She has had mild dysuria. No fevers or chills or sweats. 01/08: The patient went to the operating room for a T11 kyphoplasty with bilateral balloon placement. Post-operatively the patient was transferred to a regular med/surg floor for further monitoring and care. 01/09: When seen this morning the patient is awake in bed laying on her back. She complains of lateral hip pain on the left and the right. She also says that she continues to have intermittent pain shooting down the extremities and that the numbness persists. She does say her back feels better. Her neuro exam to the lower extremities appears stable. Exam Results 01/07/18 01/07/18 01/08/18 01/08/18 01/09/18 01/09/18 06:00 18:00 06:00 18:00 06:00 18:00 Intake Total 240 ml 920 ml 820 ml Output Total 450 ml 250 ml 0 ml 500 ml Balance -450 ml -10 ml 920 ml 320 ml Intake Oral 240 ml 120 ml 720 ml IV Total 800 ml 100 ml Output Urine Total 450 ml 250 ml 500 ml Estimated Blood Loss 0 ml # Voids 3 2 2 3 # Bowel Movements 0 0 Vital Signs Date Time Temp Pulse Resp B/P (MAP) Pulse Ox O2 Delivery O2 Flow Rate FiO2 01/09/18 09:11 18 01/09/18 07:25 96.8 71 18 129/68 (88) 96 01/09/18 05:20 98.0 69 17 139/67 (91) 96 01/09/18 04:00 68 01/09/18 00:10 64 01/08/18 23:40 65 01/08/18 23:00 96.5 66 17 119/55 (76) 97 01/08/18 19:35 97.3 67 17 116/54 (74) 99 01/08/18 15:16 95.8 62 19 116/51 (72) 99 01/08/18 14:00 Nasal Cannula 2.00 01/08/18 13:00 97.3 74 18 133/61 (85) 99 Nasal Cannula 3 01/08/18 12:30 65 12 124/57 (79) 100 Nasal Cannula 3 01/08/18 12:00 63 12 129/60 (83) 100 Nasal Cannula 3 01/08/18 11:45 64 12 127/60 (82) 99 Nasal Cannula 3 01/08/18 11:30 66 22 136/63 (87) 100 Nasal Cannula 3 01/08/18 11:15 71 20 139/59 (85) 99 Nasal Cannula 3 01/08/18 11:00 74 24 126/61 (82) 92 Nasal Cannula 3 01/08/18 10:42 97.7 81 24 168/71 (103) 98 Nasal Cannula 3 01/08/18 08:03 98.3 66 18 166/76 (106) 95 01/08/18 04:15 97.9 71 18 143/66 (91) 95 01/08/18 00:15 63 01/07/18 23:32 97.9 69 18 111/53 (72) 94 01/07/18 20:14 71 18 114/55 (74) 93 01/07/18 20:00 71 01/07/18 18:03 98.2 70 138/65 (89) 94 01/07/18 17:00 70 01/07/18 13:31 97.5 69 16 125/58 (80) 95 01/07/18 13:25 01/07/18 12:51 62 20 118/57 (77) 94 Room Air 01/07/18 08:20 67 17 01/07/18 08:20 98.4 67 17 139/65 (89) 95 Room Air 01/07/18 05:31 66 142/64 (90) 96 Room Air 01/07/18 00:46 64 148/72 (97) 97 Room Air 01/06/18 22:18 74 163/76 (105) 97 Room Air 01/06/18 18:13 24 01/06/18 17:21 66 131/63 (85) 98 Room Air 01/06/18 14:45 98.0 68 18 146/92 (110) 98 Vital Signs Date Time Temp Pulse Resp B/P (MAP) Pulse Ox O2 Delivery O2 Flow Rate FiO2 01/09/18 09:11 18 01/09/18 07:25 96.8 71 129/68 (88) 96 01/08/18 14:00 Nasal Cannula 2.00 Intake and Output 01/09/18 01/09/18 01/10/18 08:00 16:00 00:00 Intake Total 770 ml Output Total 500 ml Balance 270 ml Physical Examination GENERAL: Awake & alert laying in bed. Affect essentially normal. Readily interacts. No apparent distress. HEENT: Normocephalic, atraumatic. MUSCULOSKELETAL: PATEL spontaneously & purposefully. TTP to the superior lateral hip bilaterally. Exquisitely TTP to the inferior calf bilaterally. Thoracolumbar spine minimally TTP at the surgical incision, dressing dry & intact w/o any shadowing. NEUROLOGICAL: AAOx3. Speech clear & appropriate. Follows simple commands w/o difficulty. Sensation intact to light touch to the lower extremities. Motor strength is normal to all major flexion & extension muscle groups of the lower extremities except for the hamstrings bilaterally which are weak and appears to be related to pain to the distal calf upon testing. Lab, Micro, Other Results Recent Impressions Thoracic Spine X-Ray 01/08/18 0000 Signed Impressions: Service Date/Time: Monday, January 08, 2018 10:20 - CONCLUSION: Intraoperative images. Silvio Diaz MD Renal Ultrasound 01/07/18 0000 Signed Impressions: Service Date/Time: Sunday, January 07, 2018 11:16 - CONCLUSION: 1. Kidneys are echogenic which can be seen with medical renal disease. 2. Minimal debris within the bladder, nonspecific. Theodore Montez MD Laboratory Tests Test 01/06/18 17:44 01/06/18 18:00 01/07/18 11:13 01/07/18 19:48 White Blood Count 6.9 TH/MM3 7.2 TH/MM3 Red Blood Count 3.64 MIL/MM3 3.52 MIL/MM3 Hemoglobin 11.7 GM/DL 11.7 GM/DL Hematocrit 34.5 % 33.4 % Mean Corpuscular Volume 94.6 FL 95.0 FL Mean Corpuscular Hemoglobin 32.2 PG 33.1 PG Mean Corpuscular Hemoglobin Concent 34.1 % 34.9 % Red Cell Distribution Width 13.9 % 13.9 % Platelet Count 254 TH/MM3 267 TH/MM3 Mean Platelet Volume 7.0 FL 7.1 FL Neutrophils (%) (Auto) 61.4 % 66.5 % Lymphocytes (%) (Auto) 25.5 % 21.0 % Monocytes (%) (Auto) 10.8 % 10.3 % Eosinophils (%) (Auto) 1.8 % 1.8 % Basophils (%) (Auto) 0.5 % 0.4 % Neutrophils # (Auto) 4.2 TH/MM3 4.8 TH/MM3 Lymphocytes # (Auto) 1.8 TH/MM3 1.5 TH/MM3 Monocytes # (Auto) 0.7 TH/MM3 0.7 TH/MM3 Eosinophils # (Auto) 0.1 TH/MM3 0.1 TH/MM3 Basophils # (Auto) 0.0 TH/MM3 0.0 TH/MM3 CBC Comment DIFF FINAL DIFF FINAL Differential Comment Prothrombin Time 10.7 SEC Prothromb Time International Ratio 1.1 RATIO Activated Partial Thromboplast Time 25.0 SEC Blood Urea Nitrogen 21 MG/DL 18 MG/DL Creatinine 1.27 MG/DL 1.18 MG/DL Random Glucose 114 MG/DL 144 MG/DL Total Protein 7.4 GM/DL Albumin 3.5 GM/DL Calcium Level 9.7 MG/DL 9.3 MG/DL Alkaline Phosphatase 97 U/L Aspartate Amino Transf (AST/SGOT) 27 U/L Alanine Aminotransferase (ALT/SGPT) 25 U/L Total Bilirubin 0.5 MG/DL Sodium Level 132 MEQ/L 133 MEQ/L Potassium Level 4.0 MEQ/L 4.1 MEQ/L Chloride Level 97 MEQ/L 99 MEQ/L Carbon Dioxide Level 26.9 MEQ/L 24.2 MEQ/L Anion Gap 8 MEQ/L 10 MEQ/L Estimat Glomerular Filtration Rate 40 ML/MIN 43 ML/MIN Urine Color DARK-YELLOW YELLOW Urine Turbidity HAZY HAZY Urine pH 6.5 6.5 Urine Specific Taylor 1.014 1.013 Urine Protein 30 mg/dL 30 mg/dL Urine Glucose (UA) NEG mg/dL NEG mg/dL Urine Ketones NEG mg/dL NEG mg/dL Urine Occult Blood SMALL TRACE Urine Nitrite NEG NEG Urine Bilirubin NEG NEG Urine Urobilinogen LESS THAN 2.0 MG/DL LESS THAN 2.0 MG/DL Urine Leukocyte Esterase LARGE LARGE Urine RBC 8 /hpf 4 /hpf Urine WBC /hpf /hpf Urine WBC Clumps FEW Urine Squamous Epithelial Cells 1 /hpf Urine Amorphous Sediment RARE RARE Urine Bacteria MOD /hpf Microscopic Urinalysis Comment CULTURE INDICATED Test 01/08/18 08:05 White Blood Count 6.2 TH/MM3 Red Blood Count 3.59 MIL/MM3 Hemoglobin 11.6 GM/DL Hematocrit 33.9 % Mean Corpuscular Volume 94.5 FL Mean Corpuscular Hemoglobin 32.3 PG Mean Corpuscular Hemoglobin Concent 34.2 % Red Cell Distribution Width 14.0 % Platelet Count 208 TH/MM3 Mean Platelet Volume 6.5 FL Neutrophils (%) (Auto) 56.6 % Lymphocytes (%) (Auto) 28.6 % Monocytes (%) (Auto) 11.3 % Eosinophils (%) (Auto) 2.8 % Basophils (%) (Auto) 0.7 % Neutrophils # (Auto) 3.5 TH/MM3 Lymphocytes # (Auto) 1.8 TH/MM3 Monocytes # (Auto) 0.7 TH/MM3 Eosinophils # (Auto) 0.2 TH/MM3 Basophils # (Auto) 0.0 TH/MM3 CBC Comment DIFF FINAL Differential Comment Blood Urea Nitrogen 14 MG/DL Creatinine 1.06 MG/DL Random Glucose 107 MG/DL Calcium Level 9.0 MG/DL Sodium Level 134 MEQ/L Potassium Level 4.4 MEQ/L Chloride Level 101 MEQ/L Carbon Dioxide Level 26.0 MEQ/L Anion Gap 7 MEQ/L Estimat Glomerular Filtration Rate 49 ML/MIN Medical Decision Making Impression and Plan Impression: 1. Acute T11 compression fracture with persistent severe intractable pain. 2. Multiple chronic lumbar compression fractures with loss of lordosis. 3. Chronic UTI 4. History coronary artery disease The patient is doing well post-operatively. She does have intermittent radiating pain to the lower extremities and the numbness persists. She has lateral hip pain bilaterally which may be r/t positioning for surgery. Muscle strength does appear strong. Physical Therapy recommend inpatient rehab for further therapy. POD #1 () s/p: T11 kyphoplasty with bilateral balloon placement. Use of intraoperative biplane are fluoroscopic navigation for kyphoplasty needle , bleeding and cement placement Postoperative Diagnosis: (1) Vertebral compression fracture Acute T11 compression fracture Plan: Primary management per Hospitalist. Neuro checks. TLSO brace when OOB. Mobilise patient w/assistance. Physical Therapy eval & tx. Calvin Ty Jan 09, 2018 11:11
--- NOTE | 2018-01-09 13:08 | HHI.PR ---
Subjective Remarks Patient reports feeling sore all over. No shortness of breath or chest pressure. Objective Vitals Vital Signs Date Time Temp Pulse Resp B/P (MAP) Pulse Ox O2 Delivery O2 Flow Rate FiO2 01/09/18 11:39 97.8 67 18 109/61 (77) 93 01/09/18 09:11 18 01/09/18 07:25 96.8 71 18 129/68 (88) 96 01/09/18 05:20 98.0 69 17 139/67 (91) 96 01/09/18 04:00 68 01/09/18 00:10 64 01/08/18 23:40 65 01/08/18 23:00 96.5 66 17 119/55 (76) 97 01/08/18 19:35 97.3 67 17 116/54 (74) 99 01/08/18 15:16 95.8 62 19 116/51 (72) 99 01/08/18 14:00 Nasal Cannula 2.00 I/O 01/08/18 01/08/18 01/08/18 01/09/18 01/09/18 01/09/18 07:00 15:00 23:00 07:00 15:00 23:00 Intake Total 920 ml 50 ml 770 ml Output Total 0 ml 500 ml Balance 920 ml 50 ml 270 ml Intake Oral 120 ml 720 ml IV Total 800 ml 50 ml 50 ml Output Urine Total 500 ml Estimated Blood Loss 0 ml # Voids 3 # Bowel Movements 0 Result Diagram: 01/08/18 0805 01/08/18 0805 Objective Remarks GENERAL: This is a well-nourished, well-developed patient, in no apparent distress. CARDIOVASCULAR: Normal rate and regular rhythm without murmurs, gallops, or rubs. RESPIRATORY: Good respiratory efforts. Breath sounds equal and clear to auscultation bilaterally. GASTROINTESTINAL: Abdomen soft, non-tender, non-distended. Normal active bowel sounds MUSCULOSKELETAL: Back, upper post op dressing appear intact. Extremities without cyanosis, or edema. NEURO: Alert & Oriented x4 to person, place, time, situation. Moves all ext x4 PSYCH: Appropriate mood and affect. A/P Problem List: (1) UTI (lower urinary tract infection) ICD Code: N39.0 - UTI (lower urinary tract infection) Status: Acute (2) Vertebral compression fracture ICD Code: M48.50XA - Collapsed vertebra, not elsewhere classified, site unspecified, initial encounter for fracture Status: Acute (3) Severe back pain ICD Code: M54.9 - Dorsalgia, unspecified Status: Acute Assessment and Plan 87 y/o female with a history of chronic UTIs, spinal fractures,HTN, and HLD presented to the ED with complaints of severe back pain and dysuria. Compression fractures, possibly acute on chronic, T10, T11, with intractable severe pain -Appreciate neurosurgery following, status post kyphoplasty - Continue pain management - Early PT ESBL positive E. coli UTI, acute on chronic -Empirically treat with IV antibiotics Zosyn -Consult infectious disease for assistance Probable CKD: Patient seen by nephrology. Recommend avoiding nephrotoxins. Outpatient follow-up. Kidney ultrasound consistent with medical renal disease. Hypertension, chronic, currently elevated likely due to pain -Continue home medications metoprolol, monitor vitals, will order prn's as needed DVT prophylaxis: SCDs Problem Qualifiers (1) Vertebral compression fracture: Qualified Codes: M48.50XS - Collapsed vertebra, not elsewhere classified, site unspecified, sequela of fracture Yasmin Almonte MD Jan 09, 2018 13:08
[2018-01-09] MEDS ORDERED: BISACODYL 10 MG SUPP RECTAL PRN (15:45)
[2018-01-09] MEDS ORDERED: LACTULOSE SYRUP 20 GM/30 ML CUP PO PRN (15:45)
[2018-01-09] MEDS: MAGNESIUM HYDROXIDE SUSP 30 ML CUP PO PRN (16:02)
[2018-01-09] MEDS: SENNOSIDES 8.6 MG TAB PO PRN (19:47)
--- NOTE | 2018-01-09 20:28 | HHI.PR ---
Addendum to Inpatient Note Additional Information Pt seen around 1830 full note to follow 87 yo with chronic ? recurrent UTI; multiple abx courses with clin failure in last 12 mos presented with back pain sp kyphoplasty unable to void post op - singh placed UA/ C+S prior to placement UA dirty, innum WBC; clx + ESBL+ Afebrile, nl WBC started on zosyn multiple abx alelrgies On exam: WNL singh in place w clear yellow urine PLAN: dc zosyn Ertapenem Amy Shukla MD Jan 09, 2018 20:28
[2018-01-09] MEDS ORDERED: MISCELLANEOUS PHARMACY INFORMATION XX PRN (20:30)
[2018-01-09] MEDS ORDERED: ASP: Documented ESBL, MDR A baumannii or P. aeruginosa PRN (20:30)
--- NOTE | 2018-01-09 20:31 | PD.ID.CON ---
History of Present Illness Service ID Consult Requested By Dr Blanchard Reason for Consult UTIn ESBL+ Primary Care Physician Paulie Mancilla MD Diagnoses: History of Present Illness 87-year-old female who states that she has had multiple lumbar compression fractures in the past couple of years. This been treated conservatively thus far. She has had previous steroid injections per Dr. Tyler for chronic back pain, most recently in September 2017. She presesnted after she developed acute onset of much more severe pain the lower back. She has undergone an outpatient MRI which has revealed a acute thoracic spine compression fracture. She presented to the emergency room due to progression of severe intractable pain, unable to ambulate safely and take care of herself. She states that she lives alone. She has had some numbness in the distal lower extremities which she attributes to neuropathy. She is s/p kyphoplasty . She does indicate increased edema in the distal lower extremities over the past 2 or 3 weeks. 87 yo with chronic ? recurrent UTI; multiple abx courses with clin failure in last 12 mos After her kyphoplasty pt was unable to void post op - singh placed UA/ C+S prior to placement UA was dirty with innumerable WBC; clx + ESBL+ E.coli Afebrile, with normal WBC Pt was started on zosyn She endorses multiple abx alelrgies Review of Systems Genitourinary: COMPLAINS OF: Dysuria Musculoskeletal: COMPLAINS OF: Back pain Except as stated in HPI: all other systems reviewed are Neg Past Family Social History Allergies: Coded Allergies: Iodinated Contrast- Oral and IV Dye (Verified Allergy, Severe, UNKOWN, ) azithromycin (Verified Allergy, Severe, irregular heart rate, 12/14/17) codeine (Unverified Allergy, Severe, 10/24/17) gabapentin (Verified Allergy, Severe, Fever, 10/24/17) levofloxacin (Verified Allergy, Severe, Insomnia, 10/24/17) NAUSEA meperidine (Unverified Allergy, Severe, NAUSEA, 10/24/17) baclofen (Unverified Allergy, Intermediate, Swelling, 10/24/17) ciprofloxacin (Unverified Allergy, Intermediate, Insomnia, 10/24/17) nitrofurantoin (Verified Allergy, Intermediate, fevers, 12/14/17) phenazopyridine (Verified Allergy, Intermediate, n/v, 12/14/17) tramadol (Verified Allergy, Intermediate, Hallucinations, 12/14/17) cefaclor (Verified Allergy, Unknown, 12/14/17) cephalexin (Verified Allergy, Unknown, 12/14/17) cephradine (Verified Allergy, Unknown, 12/14/17) iodine (Unverified Allergy, Unknown, UNKNOWN, 10/24/17) HAS TESTED POSITIVE FOR ALLERGY TO IODINE BUT NO KNOWN EXPOSURE lidocaine (Unverified Allergy, Unknown, 10/24/17) potassium iodide (Unverified Allergy, Unknown, UNKNOWN, 10/24/17) HAS TESTED POSITIVE FOR ALLERGY TO IODINE BUT NO KNOWN EXPOSURE povidone-iodine (Unverified Allergy, Unknown, UNKNOWN, 10/24/17) HAS TESTED POSITIVE FOR ALLERGY TO IODINE BUT NO KNOWN EXPOSURE prednisone (Verified Allergy, Unknown, 12/14/17) sodium iodide (Unverified Allergy, Unknown, UNKNOWN, 10/24/17) HAS TESTED POSITIVE FOR ALLERGY TO IODINE BUT NO KNOWN EXPOSURE sodium iodide (Unverified Allergy, Unknown, UNKNOWN, 10/24/17) HAS TESTED POSITIVE FOR ALLERGY TO IODINE BUT NO KNOWN EXPOSURE epinephrine (Unverified Adverse Reaction, Severe, TACHYCARDIA/ SYNCOPE, ) Past Medical History Hypertension Dyslipidemia Previous ID Chronic UTIs Chronic back pain Past Surgical History Cardiac stent Hysterectomy AAA repair Reported Medications Active Ordered Medications Medications where reviewed in EMR Antibiotics Include: zosyn Family History Negative cancer, diabetes, neurologic disease Social History Social History States she lives alone. No alcohol or tobacco use Physical Exam Vital Signs Vital Signs Date Time Temp Pulse Resp B/P (MAP) Pulse Ox O2 Delivery O2 Flow Rate FiO2 01/09/18 15:40 97.8 69 18 128/62 (84) 94 01/09/18 11:39 97.8 67 18 109/61 (77) 93 01/09/18 09:11 18 01/09/18 07:25 96.8 71 18 129/68 (88) 96 01/09/18 05:20 98.0 69 17 139/67 (91) 96 01/09/18 04:00 68 01/09/18 00:10 64 01/08/18 23:40 65 01/08/18 23:00 96.5 66 17 119/55 (76) 97 Physical Exam CONSTITUTIONAL/GENERAL: This is an adequately nourished patient, in no apparent distress. TUBES/LINES/DRAINS: SKIN: No jaundice, rashes, or lesions. Skin temperature appropriate. Not diaphoretic. HEAD: Atraumatic. Normocephalic. EYES: Pupils equal and round and reactive. Extraocular motions intact. No scleral icterus. No injection or drainage. Fundi not examined. ENT: Hearing grossly normal. Nose without bleeding or purulent drainage. Throat without visible erythema, exudates, masses, or lesions. NECK: Trachea midline. Supple, nontender. No palpable thyroid enlargement or nodularity. CARDIOVASCULAR: Regular rate and rhythm without murmurs, gallops, or rubs. No JVD. Peripheral pulses symmetric. RESPIRATORY/CHEST: Symmetric, unlabored respirations. Clear to auscultation. Breath sounds equal bilaterally. No wheezes, rales, or rhonchi. GASTROINTESTINAL: Abdomen soft, non-tender, nondistended. No hepato-splenomegaly , or palpable masses. No guarding. Bowel sounds present. GENITOURINARY: Without palpable bladder distension. Singh catheter in place w clear yellow urine MUSCULOSKELETAL: Extremities without clubbing, cyanosis, or edema. No joint tenderness or effusion noted. No calf tenderness. No mottling or clubbing. LYMPHATICS: No palpable cervical or supraclavicular adenopathy. NEUROLOGICAL: Awake and alert. Motor and sensory grossly within normal limits. Follows commands. Clear speechp. Moves all extremities. PSYCHIATRIC: No obvious anxiety/depression. no apparent hallucinations or other psychotic thought process. Laboratory Date/Time Source Procedure Growth Status 01/06/18 18:00 Urine Clean Catch Urine Culture - Final Escherichia Coli Esbl Positive Multi-Drug Resistant Complete Result Diagram: 01/08/1880401/08/18804 Imaging Last Impressions Thoracic Spine X-Ray 01/08/18 0000 Signed Impressions: Service Date/Time: Monday, January 08, 2018 10:20 - CONCLUSION: Intraoperative images. Silvio Diaz MD Renal Ultrasound 01/07/18 0000 Signed Impressions: Service Date/Time: Sunday, January 07, 2018 11:16 - CONCLUSION: 1. Kidneys are echogenic which can be seen with medical renal disease. 2. Minimal debris within the bladder, nonspecific. Theodore Montez MD Thoracic Spine CT 01/06/18 0000 Signed Impressions: Service Date/Time: Saturday, January 06, 2018 19:05 - CONCLUSION: 1. Mild and potentially acute compression fracture of T10 without associated foraminal or spinal stenosis. 2. Moderate severity chronic appearing compression fracture of T11. Abran Burnett MD Lumbar Spine CT 01/06/18 0000 Signed Impressions: Service Date/Time: Saturday, January 06, 2018 19:05 - CONCLUSION: 1. Chronic compression deformities of each lumbar vertebra as above without fracture-associated foraminal or spinal stenosis. No acute fracture demonstrated. No subluxation. 2. Multilevel degenerative changes as above. Abran Burnett MD Chest X-Ray 01/06/18 0000 Signed Impressions: Service Date/Time: Saturday, January 06, 2018 17:06 - CONCLUSION: No acute disease. Dawson Farris MD Assessment and Plan Assessment and Plan UTI, recurrent , now with ESBL + E.coli Multiple abx allergies PLAN: onel zosystorm Ertapenem Discussed Condition With RN Amy Roger MD Jan 09, 2018 20:31
[2018-01-09] MEDS: ERTAPENEM INJ 1,000 MG in SODIUM CHLORIDE 0.9% INJ 100 ML IV SCH (23:26)
[2018-01-10] VITALS (7 sets, daily range): BP systolic 122–158; BP diastolic 58–70; PULSE 66–76; RESP 17–18; TEMP 96.5–98.1; O2SAT 92–93
[2018-01-10] MEDS: MORPHINE SULFATE 2 MG/ML INJ IV PUSH PRN ×2 (00:12→08:56)
[2018-01-10] MEDS: MORPHINE SULFATE 4 MG/ML INJ IV PUSH PRN (05:39)
[2018-01-10] MEDS: SODIUM CHLORIDE 0.9% FLUSH 10 ML FLUSH IV FLUSH SCH ×2 (08:43→22:06)
[2018-01-10] MEDS: METOPROLOL TARTRATE 25 MG TAB PO SCH ×2 (08:44→22:13)
--- NOTE | 2018-01-10 10:03 | HHI.NSPN ---
(Calvin Ty) History Chief Complaint: Low back pain going down into legs, also numbness. (Calvin Ty) Interval History 01/07: 87-year-old female who states that she has had multiple lumbar compression fractures in the past couple of years. This been treated conservatively thus far. She has had previous steroid injections per Dr. Tyler for chronic back pain, most recently in September 2017. She states that a month ago she developed acute onset of much more severe pain in the midline thoracolumbar region with radiation to the right and left flank and primarily right greater than left lateral hip and groin region. She has undergone an outpatient MRI which has revealed a acute thoracic spine compression fracture. She presented to the emergency room due to progression of severe intractable pain, unable to ambulate safely and take care of herself. She states that she lives alone. She has had some numbness in the distal lower extremities which she attributes to neuropathy. This has been present over the past 1 or 2 months. She does indicate increased edema in the distal lower extremities over the past 2 or 3 weeks. She has a history of chronic UTIs and has been seen by urology during this hospitalization. Her initial urinalysis revealed greater than 100,000 CFU/mL gram-negative rods with industrial cultures positive Escherichia coli. She has had mild dysuria. No fevers or chills or sweats. 01/08: The patient went to the operating room for a T11 kyphoplasty with bilateral balloon placement. Post-operatively the patient was transferred to a regular med/surg floor for further monitoring and care. 01/09: When seen this morning the patient is awake in bed laying on her back. She complains of lateral hip pain on the left and the right. She also says that she continues to have intermittent pain shooting down the extremities and that the numbness persists. She does say her back feels better. Her neuro exam to the lower extremities appears stable. 01/10: This morning the patient is "not doing so good." She complains of low back pain that is intermittently shooting down into the thighs depending upon which muscles she is using. She says that she has numbness down both lower extremities to the toes. Motor strength is stable upon examination. She reports ambulating w/Physical Therapy in the room yesterday with her brace on. (Calvin Ty) Exam Results 01/08/18 01/08/18 01/09/18 01/09/18 01/10/18 01/10/18 06:00 18:00 06:00 18:00 06:00 18:00 Intake Total 920 ml 820 ml 800 ml 150 ml 720 ml Output Total 0 ml 500 ml 700 ml 1150 ml Balance 920 ml 320 ml 100 ml 150 ml -430 ml Intake Oral 120 ml 720 ml 800 ml 720 ml IV Total 800 ml 100 ml 150 ml Output Urine Total 500 ml 700 ml 1150 ml Estimated Blood Loss 0 ml # Voids 2 3 # Bowel Movements 0 0 0 0 Vital Signs Date Time Temp Pulse Resp B/P (MAP) Pulse Ox O2 Delivery O2 Flow Rate FiO2 01/10/18 07:48 96.6 76 17 130/61 (84) 93 01/10/18 04:00 97.7 75 18 128/66 (86) 92 01/10/18 04:00 73 01/10/18 00:00 74 01/10/18 00:00 98.1 75 18 135/66 (89) 92 01/09/18 20:30 76 01/09/18 19:30 97.6 73 17 120/59 (79) 93 01/09/18 15:40 97.8 69 18 128/62 (84) 94 01/09/18 11:39 97.8 67 18 109/61 (77) 93 01/09/18 09:11 18 01/09/18 07:25 96.8 71 18 129/68 (88) 96 01/09/18 05:20 98.0 69 17 139/67 (91) 96 01/09/18 04:00 68 01/09/18 00:10 64 01/08/18 23:40 65 01/08/18 23:00 96.5 66 17 119/55 (76) 97 01/08/18 19:35 97.3 67 17 116/54 (74) 99 01/08/18 15:16 95.8 62 19 116/51 (72) 99 01/08/18 14:00 Nasal Cannula 2.00 01/08/18 13:00 97.3 74 18 133/61 (85) 99 Nasal Cannula 3 01/08/18 12:30 65 12 124/57 (79) 100 Nasal Cannula 3 01/08/18 12:00 63 12 129/60 (83) 100 Nasal Cannula 3 01/08/18 11:45 64 12 127/60 (82) 99 Nasal Cannula 3 01/08/18 11:30 66 22 136/63 (87) 100 Nasal Cannula 3 01/08/18 11:15 71 20 139/59 (85) 99 Nasal Cannula 3 01/08/18 11:00 74 24 126/61 (82) 92 Nasal Cannula 3 01/08/18 10:42 97.7 81 24 168/71 (103) 98 Nasal Cannula 3 01/08/18 08:03 98.3 66 18 166/76 (106) 95 01/08/18 04:15 97.9 71 18 143/66 (91) 95 01/08/18 00:15 63 01/07/18 23:32 97.9 69 18 111/53 (72) 94 01/07/18 20:14 71 18 114/55 (74) 93 01/07/18 20:00 71 01/07/18 18:03 98.2 70 138/65 (89) 94 01/07/18 17:00 70 01/07/18 13:31 97.5 69 16 125/58 (80) 95 01/07/18 13:25 01/07/18 12:51 62 20 118/57 (77) 94 Room Air (Calvin Ty) Physical Examination GENERAL: Awake & alert laying in bed. Affect essentially normal. Readily interacts. No apparent distress. HEENT: Normocephalic, atraumatic. MUSCULOSKELETAL: PATEL spontaneously & purposefully. TTP to the lateral hip bilaterally over the greater trochanter R>L. TTP to the inferior calf bilaterally. Mildly TTP at the buttocks bilaterally. TTP at the mid thoracic & upper lumbar spine o/w NTTP, surgical incision NTTP w/dressing dry & intact w/o any shadowing. She has low back pain with testing of BLE testing. NEUROLOGICAL: AAOx3. Speech clear & appropriate. Follows simple commands w/o difficulty. Sensation intact to light touch to the lower extremities. Motor strength is normal to all major flexion & extension muscle groups of the lower extremities, hamstrings bilaterally slightly weak and appears to be related to pain. (Calvin Ty) Lab, Micro, Other Results Recent Impressions Thoracic Spine X-Ray 01/08/18 0000 Signed Impressions: Service Date/Time: Monday, January 08, 2018 10:20 - CONCLUSION: Intraoperative images. Silvio Diaz MD Laboratory Tests Test 01/07/18 11:13 01/07/18 19:48 01/08/18 08:05 White Blood Count 7.2 TH/MM3 6.2 TH/MM3 Red Blood Count 3.52 MIL/MM3 3.59 MIL/MM3 Hemoglobin 11.7 GM/DL 11.6 GM/DL Hematocrit 33.4 % 33.9 % Mean Corpuscular Volume 95.0 FL 94.5 FL Mean Corpuscular Hemoglobin 33.1 PG 32.3 PG Mean Corpuscular Hemoglobin Concent 34.9 % 34.2 % Red Cell Distribution Width 13.9 % 14.0 % Platelet Count 267 TH/MM3 208 TH/MM3 Mean Platelet Volume 7.1 FL 6.5 FL Neutrophils (%) (Auto) 66.5 % 56.6 % Lymphocytes (%) (Auto) 21.0 % 28.6 % Monocytes (%) (Auto) 10.3 % 11.3 % Eosinophils (%) (Auto) 1.8 % 2.8 % Basophils (%) (Auto) 0.4 % 0.7 % Neutrophils # (Auto) 4.8 TH/MM3 3.5 TH/MM3 Lymphocytes # (Auto) 1.5 TH/MM3 1.8 TH/MM3 Monocytes # (Auto) 0.7 TH/MM3 0.7 TH/MM3 Eosinophils # (Auto) 0.1 TH/MM3 0.2 TH/MM3 Basophils # (Auto) 0.0 TH/MM3 0.0 TH/MM3 CBC Comment DIFF FINAL DIFF FINAL Differential Comment Blood Urea Nitrogen 18 MG/DL 14 MG/DL Creatinine 1.18 MG/DL 1.06 MG/DL Random Glucose 144 MG/DL 107 MG/DL Calcium Level 9.3 MG/DL 9.0 MG/DL Sodium Level 133 MEQ/L 134 MEQ/L Potassium Level 4.1 MEQ/L 4.4 MEQ/L Chloride Level 99 MEQ/L 101 MEQ/L Carbon Dioxide Level 24.2 MEQ/L 26.0 MEQ/L Anion Gap 10 MEQ/L 7 MEQ/L Estimat Glomerular Filtration Rate 43 ML/MIN 49 ML/MIN Urine Color YELLOW Urine Turbidity HAZY Urine pH 6.5 Urine Specific [place] 1.013 Urine Protein 30 mg/dL Urine Glucose (UA) NEG mg/dL Urine Ketones NEG mg/dL Urine Occult Blood TRACE Urine Nitrite NEG Urine Bilirubin NEG Urine Urobilinogen LESS THAN 2.0 MG/DL Urine Leukocyte Esterase LARGE Urine RBC 4 /hpf Urine WBC /hpf Urine Amorphous Sediment RARE (Calvin Ty) Medical Decision Making Impression and Plan Impression: 1. Acute T11 compression fracture with persistent severe intractable pain. 2. Multiple chronic lumbar compression fractures with loss of lordosis. 3. Chronic UTI 4. History coronary artery disease The patient is doing well post-operatively. She continues to have low back pain w/radiation to bilateral thighs w/movement. Numbness to BLE. Muscle strength appears normal. Physical Therapy recommend inpatient rehab for further therapy. POD #2 () s/p: T11 kyphoplasty with bilateral balloon placement. Use of intraoperative biplane are fluoroscopic navigation for kyphoplasty needle , bleeding and cement placement Postoperative Diagnosis: (1) Vertebral compression fracture Acute T11 compression fracture Plan: Primary management per Hospitalist. Neuro checks. TLSO brace when OOB. Mobilise patient w/assistance. Physical Therapy eval & tx. (Calvin Ty) Attending Statement The exam, history, and the medical decision-making described in the above note were completed with the assistance of the mid-level provider. I reviewed and agree with the findings presented. I attest that I had a [id number] encounter with the patient on the same day, and personally performed and documented my assessment and findings in the medical record. On my examination 01/10/2018, the patient is out of bed sitting up in a chair with the brace on. She has ambulated today with therapy and did relatively well. Her pain is tolerable with oral medications. Sensorimotor function intact lower extremities except for some chronic neuropathy. Very relatively well following kyphoplasty Stable for inpatient rehabilitation from neurosurgical standpoint. (Jhonny Leyva MD) Calvin Ty Jan 10, 2018 10:03 Jhonny Leyva MD Jan 11, 2018 19:49
[2018-01-10] MEDS ORDERED: LACTULOSE SYRUP 20 GM/30 ML CUP PO ONE (11:15)
--- NOTE | 2018-01-10 11:33 | HHI.PR ---
Subjective Remarks Patient reports persistent back pain. She has been using IV morphine. Objective Vitals Vital Signs Date Time Temp Pulse Resp B/P (MAP) Pulse Ox O2 Delivery O2 Flow Rate FiO2 01/10/18 07:48 96.6 76 17 130/61 (84) 93 01/10/18 04:00 97.7 75 18 128/66 (86) 92 01/10/18 04:00 73 01/10/18 00:00 74 01/10/18 00:00 98.1 75 18 135/66 (89) 92 01/09/18 20:30 76 01/09/18 19:30 97.6 73 17 120/59 (79) 93 01/09/18 15:40 97.8 69 18 128/62 (84) 94 01/09/18 11:39 97.8 67 18 109/61 (77) 93 I/O 01/09/18 01/09/18 01/09/18 01/10/18 01/10/18 01/10/18 07:00 15:00 23:00 07:00 15:00 23:00 Intake Total 770 ml 800 ml 50 ml 820 ml Output Total 500 ml 700 ml 1150 ml Balance 270 ml 100 ml 50 ml -330 ml Intake Oral 720 ml 800 ml 720 ml IV Total 50 ml 50 ml 100 ml Output Urine Total 500 ml 700 ml 1150 ml # Bowel Movements 0 0 0 Result Diagram: 01/08/1880401/08/18804 Objective Remarks GENERAL: This is a well-nourished, well-developed patient, in no apparent distress. CARDIOVASCULAR: Normal rate and regular rhythm without murmurs, gallops, or rubs. RESPIRATORY: Good respiratory efforts. Breath sounds equal and clear to auscultation bilaterally. GASTROINTESTINAL: Abdomen soft, non-tender, non-distended. Normal active bowel sounds MUSCULOSKELETAL: Back, upper post op dressing appear intact. Complains of diffuse back pain with palpation. Extremities without cyanosis, or edema. NEURO: Alert & Oriented x4 to person, place, time, situation. Moves all ext x4 PSYCH: Appropriate mood and affect. A/P Problem List: (1) UTI (lower urinary tract infection) ICD Code: N39.0 - UTI (lower urinary tract infection) Status: Acute (2) Vertebral compression fracture ICD Code: M48.50XA - Collapsed vertebra, not elsewhere classified, site unspecified, initial encounter for fracture Status: Acute (3) Severe back pain ICD Code: M54.9 - Dorsalgia, unspecified Status: Acute Assessment and Plan 87 y/o female with a history of chronic UTIs, spinal fractures,HTN, and HLD presented to the ED with complaints of severe back pain and dysuria. Compression fractures, possibly acute on chronic, T10, T11, with intractable severe pain -Appreciate neurosurgery following, status post kyphoplasty - Continue pain management. Wean down the IV pain medication. Transition to oral pain medication. -Continue PT efforts. Discussed with case management to have [facility] evaluate the patient ESBL positive E. coli UTI, acute on chronic -Infectious disease following. Patient was switched to ertapenem. Probable CKD: Patient seen by nephrology. Recommend avoiding nephrotoxins. Outpatient follow-up. Kidney ultrasound consistent with medical renal disease. Hypertension, chronic, currently elevated likely due to pain -Continue home medications metoprolol, monitor vitals, will order prn's as needed DVT prophylaxis: SCDs Discharge Planning Anticipate discharge to [facility] or SNF in the next 1-2 days. Need final recommendations from ID. Problem Qualifiers (1) Vertebral compression fracture: Qualified Codes: M48.50XS - Collapsed vertebra, not elsewhere classified, site unspecified, sequela of fracture Yasmin Almonte MD Jan 10, 2018 11:33
[2018-01-10] MEDS: oxyCODONE/ACETAMINOPHEN 5 MG/325 MG TAB PO PRN ×2 (12:22→22:09)
[2018-01-10] MEDS: SENNOSIDES 8.6 MG TAB PO PRN (22:06)
[2018-01-10] MEDS: MAGNESIUM HYDROXIDE SUSP 30 ML CUP PO PRN (22:08)
[2018-01-10] MEDS: ERTAPENEM INJ 1,000 MG in SODIUM CHLORIDE 0.9% INJ 100 ML IV SCH (23:28)
[2018-01-11 04:10] VITALS: BP 133/60; PULSE 71; RESP 18; TEMP 97; O2SAT 92
[2018-01-11] MEDS: oxyCODONE/ACETAMINOPHEN 5 MG/325 MG TAB PO PRN ×3 (05:55→15:24)
[2018-01-11 08:00] VITALS: BP 125/59; PULSE 66; RESP 17; TEMP 96.6; O2SAT 93
[2018-01-11] MEDS: SODIUM CHLORIDE 0.9% FLUSH 10 ML FLUSH IV FLUSH SCH (09:00)
[2018-01-11] MEDS: METOPROLOL TARTRATE 25 MG TAB PO SCH (09:19)
--- NOTE | 2018-01-11 10:21 | HHI.DS ---
Discharge Summary Admission Date Jan 07, 2018 at 00:48 Discharge Date: Jan 11, 2018 Admitting Diagnosis Severe back pain, UTI, gait instability, vertebral fractures (1) UTI (lower urinary tract infection) ICD Code: N39.0 - UTI (lower urinary tract infection) Status: Acute (2) Vertebral compression fracture ICD Code: M48.50XA - Collapsed vertebra, not elsewhere classified, site unspecified, initial encounter for fracture Status: Acute (3) Severe back pain ICD Code: M54.9 - Dorsalgia, unspecified Status: Acute Procedures Kyphoplasty Brief History - From Admission 87 y/o female with a history of chronic UTIs, AL with stent placement, spinal fractures,HTN, and HLD presented to the ED with complaints of severe back pain and dysuria. Patient states she has had severe pain for over a month but for the last 2 weeks it has been severe in her mid to lower back, that is constant, and sharp, 10/10, worse with movement, morphine helps a little bit, associated numbness and tingling in bilateral legs. She is unable to walk and is unable to care for herself. She states she has been sitting in a chair most of the day and her niece comes at night to stay with her and help her but she is alone during the day. She denies any recent falls but states she may have twisted her body wrong to cause even more severe pain. Upon examination patient is very painful and is unable to roll side to side without excruciating pain. She may not be able to be discharged home since she is unable to care for her self and lives alone, and the continuous use of IV pain medicine currently. She states was doing injections under anesthesia and her last one was on Oct 09. He was seen by [facility] who was going to do kyphoplasty but she states needed to be cleared from cardiology and urology first, and needed to pay a balance in the office as well. She states because the doctor would not schedule her surgery because of the balance she owed she wants a second opinion and does not want to see Dr. Barrow again. She states she was supposed to see Dr. Weir today in the office for her chronic UTIs but missed her appointment. She states he is trying to figure out why she continues to have UTIs and was supposed to have a scan completed but is unsure which scan she needed. She denies any recent antibiotic use, but complains of constant burning with urination and frequency. Orthopedic: Dr. Barrow Urologist: Dr. Weir Felt Machine Mechanic: Dr. Leiva CBC/BMP: 01/08/18 0805 01/08/18 0805 PE at Discharge GENERAL: This is a well-nourished, well-developed patient, in no apparent distress. CARDIOVASCULAR: Normal rate and regular rhythm without murmurs, gallops, or rubs. RESPIRATORY: Good respiratory efforts. Breath sounds equal and clear to auscultation bilaterally. GASTROINTESTINAL: Abdomen soft, non-tender, non-distended. Normal active bowel sounds MUSCULOSKELETAL: Back, upper post op dressing appear intact. Complains of diffuse back pain with palpation. Extremities without cyanosis, or edema. NEURO: Alert & Oriented x4 to person, place, time, situation. Moves all ext x4 PSYCH: Appropriate mood and affect. Pt update on day of discharge Patient reports she is feeling okay. Still having some generalized joint pains but reports that the site of surgery is much less painful. Hospital Course 87 y/o female with a history of chronic UTIs, spinal fractures,HTN, and HLD presented to the ED with complaints of severe back pain and dysuria. Evaluation and treatment course detailed below: Compression fractures, possibly acute on chronic, T10, T11, with intractable severe pain -Appreciate neurosurgery following, status post kyphoplasty - Continue pain management. - Continue PT efforts. Patient discharged to [facility] to continue rehabilitation efforts. ESBL positive E. coli UTI, acute on chronic -Infectious disease f followed the patient. She was started on ertapenem to be continued in rehab for 10 days. Probable CKD: Patient seen by nephrology. Recommend avoiding nephrotoxins. Outpatient follow-up. Kidney ultrasound consistent with medical renal disease. Hypertension, chronic -Continue home medications metoprolol. Pt Condition on Discharge: Good Discharge Disposition: Rehab Inpatient Discharge Time: > 30 minutes Discharge Instructions DIET: Follow Instructions for: As Tolerated, No Restrictions Activities you can perform: Regular-No Restrictions Activities to Avoid: Strenuous Activity New Medications: Epinephrine Inj (Epinephrine Inj) 1 Mg/Ml (1 Ml) Inj 0.3 MG IV PUSH ONCE PRN for ALLERGIC REACTION, #1 VIAL Epinephrine Inj (Epinephrine Inj) 1 Mg/Ml (1 Ml) Inj 0.3 MG SQ ONCE PRN for ALLERGIC REACTION, #1 VIAL Give with any signs of respiratory distress. Ertapenem Inj (Invanz Inj) 1 Gm Addvial 1 GM IV Q24H for Infection for 7 Days, INJECTION 0 Refills ADMINISTER IN 100ML NS Hydrocortisone Inj (Solu-Cortef Inj) 250 Mg/2 Ml Inj 250 MG IV PUSH ONCE PRN for ALLERGIC REACTION, #1 VIAL 0 Refills Give over 30-60 seconds. Continued Medications: Acetaminophen (Mapap) 325 Mg Tab 325 MG PO Q4-6H PRN for PAIN SCALE 1 TO 10, TAB [address] (Aspirin Adult Low Strength) 81 Mg Tabdr 40.5 MG PO DAILY, TAB Atorvastatin (Atorvastatin) 20 Mg Tab 10 MG PO DAILY for Cholesterol Management, #30 TAB [address] (Dulcolax DR) 5 Mg Tabdr 5 MG PO DAILY PRN for CONSTIPATION, #30 TAB 0 Refills Hydrocodone-Acetaminophen ([place]) 5 Mg-325 Mg Tab 1 TAB PO Q4-6H PRN for PAIN, TAB 0 Refills Ibuprofen (Ibuprofen) 200 Mg Cap 200 MG PO Q6H PRN for PAIN SCALE 1 TO 10, CAP 0 Refills Magnesium Hydroxide Liq (Milk of Magnesia Liq) 400 Mg/5 Ml Susp 30 ML PO DAILY PRN for INDIGESTION OR UPSET STOMACH, #1 BOTTLE 0 Refills Metoprolol Tartrate (Metoprolol Tartrate) 25 Mg Tab 12.5 MG PO BID, #60 TAB 0 Refills Yasmin Almonte MD Jan 11, 2018 10:21
[2018-01-11 12:00] VITALS: BP 155/68; PULSE 67; RESP 17; TEMP 95.6; O2SAT 92
--- NOTE | 2018-01-11 14:41 | HHI.FF ---
Infusion Therapy Location of Infusion Therapy: [facility] Infusion Therapy Order Patient Information Patient Weight 63.64 kg Diagnosis: Coded Allergies: Iodinated Contrast- Oral and IV Dye (Verified Allergy, Severe, UNKOWN, ) azithromycin (Verified Allergy, Severe, irregular heart rate, 12/14/17) codeine (Unverified Allergy, Severe, 10/24/17) gabapentin (Verified Allergy, Severe, Fever, 10/24/17) levofloxacin (Verified Allergy, Severe, Insomnia, 10/24/17) NAUSEA meperidine (Unverified Allergy, Severe, NAUSEA, 10/24/17) baclofen (Unverified Allergy, Intermediate, Swelling, 10/24/17) ciprofloxacin (Unverified Allergy, Intermediate, Insomnia, 10/24/17) nitrofurantoin (Verified Allergy, Intermediate, fevers, 12/14/17) phenazopyridine (Verified Allergy, Intermediate, n/v, 12/14/17) tramadol (Verified Allergy, Intermediate, Hallucinations, 12/14/17) cefaclor (Verified Allergy, Unknown, 12/14/17) cephalexin (Verified Allergy, Unknown, 12/14/17) cephradine (Verified Allergy, Unknown, 12/14/17) iodine (Unverified Allergy, Unknown, UNKNOWN, 10/24/17) HAS TESTED POSITIVE FOR ALLERGY TO IODINE BUT NO KNOWN EXPOSURE lidocaine (Unverified Allergy, Unknown, 10/24/17) potassium iodide (Unverified Allergy, Unknown, UNKNOWN, 10/24/17) HAS TESTED POSITIVE FOR ALLERGY TO IODINE BUT NO KNOWN EXPOSURE povidone-iodine (Unverified Allergy, Unknown, UNKNOWN, 10/24/17) HAS TESTED POSITIVE FOR ALLERGY TO IODINE BUT NO KNOWN EXPOSURE prednisone (Verified Allergy, Unknown, 12/14/17) sodium iodide (Unverified Allergy, Unknown, UNKNOWN, 10/24/17) HAS TESTED POSITIVE FOR ALLERGY TO IODINE BUT NO KNOWN EXPOSURE sodium iodide (Unverified Allergy, Unknown, UNKNOWN, 10/24/17) HAS TESTED POSITIVE FOR ALLERGY TO IODINE BUT NO KNOWN EXPOSURE epinephrine (Unverified Adverse Reaction, Severe, TACHYCARDIA/ SYNCOPE, ) Administer Medication Ertapenem 1 gram IV Start Treatment: Jan 11, 2018 Stop Treatment: Jan 18, 2018 Additional Information Venous access: Other Additional Instructions [x] Peripheral flush and dressing changes per protocol [x] Implanted port and central personal lines account manager: * Implanted port: 10 ml Normal Saline followed by 5 ml Heparin 100 units/ml Heparin flush after each use and monthly to maintain. [] May leave port accessed during therapy. [] May leave peripheral site accessed for duration of therapy. [x] If patient has SOB or respiratory distress, check oxygen saturation. If less than 90% or clinical signs of respiratory distress, administer oxygen at 2 L/min. via nasal cannula and notify physician. [x] Anaphylaxis/Reaction orders: * Stop infusion. * Keep IV line open with saline flush. * Notify physician. * Monitor vital signs every 15 minutes until symptoms resolve. * Check Oxygen saturation; Oxygen at 2 L/min. via nasal cannula if less than 90% or clinical signs of respiratory distress. * Administer diphenhydramine (Benadryl) 25 mg IV STAT, (unless patient has received as pre-med). May repeat once, if necessary. * Solu-Cortef 250 mg IVP over 30-60 seconds, use 100 mg vials for each dissolution. * Epinephrine (1mg/1 ml) 0.3 mg subcutaneously or IVP now with any signs of respiratory distress. * Check with physician for new additional pre-med orders if patient is re- challenged or re-treated. [x] May remove PICC line when treatment complete, after confirming with Physician. [x] If the patient is admitted to the hospital, the ED, or transferred via [facility] , complete transfer form including medication reconciliation order sheet. Laboratory Tests Weekly Labs: CBC w/diff, Creatinine Amy Shukla MD Jan 11, 2018 14:41
[2018-01-11] MEDS ORDERED: INVA1INJ IV (14:44)
[2018-01-11] MEDS ORDERED: EPIN1INJ21 SQ (14:44)
[2018-01-11] MEDS ORDERED: EPIN1INJ21 IV PUSH (14:44)
[2018-01-11] MEDS ORDERED: SOLU250I IV PUSH (14:44)
--- NOTE | 2018-01-11 14:46 | HHI.IDPN ---
Subjective Subjective Remarks doing OK no new c/o afebrile no rash, itching Antibiotics ertapenem Allergies: Coded Allergies: Iodinated Contrast- Oral and IV Dye (Verified Allergy, Severe, UNKOWN, ) azithromycin (Verified Allergy, Severe, irregular heart rate, 12/14/17) codeine (Unverified Allergy, Severe, 10/24/17) gabapentin (Verified Allergy, Severe, Fever, 10/24/17) levofloxacin (Verified Allergy, Severe, Insomnia, 10/24/17) NAUSEA meperidine (Unverified Allergy, Severe, NAUSEA, 10/24/17) baclofen (Unverified Allergy, Intermediate, Swelling, 10/24/17) ciprofloxacin (Unverified Allergy, Intermediate, Insomnia, 10/24/17) nitrofurantoin (Verified Allergy, Intermediate, fevers, 12/14/17) phenazopyridine (Verified Allergy, Intermediate, n/v, 12/14/17) tramadol (Verified Allergy, Intermediate, Hallucinations, 12/14/17) cefaclor (Verified Allergy, Unknown, 12/14/17) cephalexin (Verified Allergy, Unknown, 12/14/17) cephradine (Verified Allergy, Unknown, 12/14/17) iodine (Unverified Allergy, Unknown, UNKNOWN, 10/24/17) HAS TESTED POSITIVE FOR ALLERGY TO IODINE BUT NO KNOWN EXPOSURE lidocaine (Unverified Allergy, Unknown, 10/24/17) potassium iodide (Unverified Allergy, Unknown, UNKNOWN, 10/24/17) HAS TESTED POSITIVE FOR ALLERGY TO IODINE BUT NO KNOWN EXPOSURE povidone-iodine (Unverified Allergy, Unknown, UNKNOWN, 10/24/17) HAS TESTED POSITIVE FOR ALLERGY TO IODINE BUT NO KNOWN EXPOSURE prednisone (Verified Allergy, Unknown, 12/14/17) sodium iodide (Unverified Allergy, Unknown, UNKNOWN, 10/24/17) HAS TESTED POSITIVE FOR ALLERGY TO IODINE BUT NO KNOWN EXPOSURE sodium iodide (Unverified Allergy, Unknown, UNKNOWN, 10/24/17) HAS TESTED POSITIVE FOR ALLERGY TO IODINE BUT NO KNOWN EXPOSURE epinephrine (Unverified Adverse Reaction, Severe, TACHYCARDIA/ SYNCOPE, ) Objective . Vital Signs Date Time Temp Pulse Resp B/P (MAP) Pulse Ox O2 Delivery O2 Flow Rate FiO2 01/11/18 12:00 95.6 67 17 155/68 (97) 92 01/11/18 08:00 96.6 66 17 125/59 (81) 93 01/11/18 04:10 97.0 71 18 133/60 (84) 92 01/10/18 23:45 96.5 66 17 126/58 (80) 92 01/10/18 20:00 97.0 69 17 122/58 (79) 93 01/10/18 16:00 96.9 76 17 158/70 (99) 92 Physical Exam CONSTITUTIONAL/GENERAL: This is an adequately nourished patient, in no apparent distress. TUBES/LINES/DRAINS: SKIN: No jaundice, rashes, or lesions. Skin temperature appropriate. Not diaphoretic. RESPIRATORY/CHEST: Symmetric, unlabored respirations. GASTROINTESTINAL: Abdomen soft, non-tender, nondistended. GENITOURINARY: Without palpable bladder distension. Car catheter in place w clear orangy urine MUSCULOSKELETAL: Extremities without clubbing, cyanosis, or edema. NEUROLOGICAL: Awake and alert. Motor and sensory grossly within normal limits. Follows commands. Clear speechp. Moves all extremities. PSYCHIATRIC: No obvious anxiety/depression. no apparent hallucinations or other psychotic thought process. Assessment & Plan Remarks UTI, recurrent , now with ESBL + E.coli Multiple abx allergies, buit tolerates Erteapenem OK PLAN: cont Ertapenem x 10 days Midline OK to dc to [facility] form filled out Discussed Condition With pt Amy Shukla MD Jan 11, 2018 14:46
== END 2018-01-11 18:11 | DRG 516 ==
LOC: NEPD 13:24 → NEDA 20:13 → NEDH 01-07 00:33 → OBSVTOIN 01-07 00:48 → NEPGCP 01-07 13:30 → N06B 01-08 08:09 → N06A 01-08 14:06
PROVIDERS: ADMIT Family Medicine; ATTEND Family Medicine
PROC: 0PU43JZ Supplement Thoracic Vertebra with Synthetic Substitute, Percutaneous Approach (ICD-10-PCS; 2018-01-08)
PROC: 0PS43ZZ Reposition Thoracic Vertebra, Percutaneous Approach (ICD-10-PCS; principal; 2018-01-08 09:20)
PROC: 05H533Z Insertion of Infusion Device into Right Subclavian Vein, Percutaneous Approach (ICD-10-PCS; 2018-01-11)
PROC: B546ZZA Ultrasonography of Right Subclavian Vein, Guidance (ICD-10-PCS; 2018-01-11)
DX: M48.54XA Collapsed vertebra, not elsewhere classified, thoracic region, initial encounter for fracture (principal); N39.0 Urinary tract infection, site not specified; B96.20 Unspecified Escherichia coli [E. coli] as the cause of diseases classified elsewhere; Z16.12 Extended spectrum beta lactamase (ESBL) resistance; I12.9 Hypertensive chronic kidney disease with stage 1 through stage 4 chronic kidney disease, or unspecified chronic kidney disease; N18.3 Chronic kidney disease, stage 3 (moderate); Z87.440 Personal history of urinary (tract) infections; R39.198 Other difficulties with micturition; E78.5 Hyperlipidemia, unspecified; R26.2 Difficulty in walking, not elsewhere classified; I25.10 Atherosclerotic heart disease of native coronary artery without angina pectoris; I25.2 Old myocardial infarction; Z95.5 Presence of coronary angioplasty implant and graft; Z79.82 Long term (current) use of aspirin; Z88.1 Allergy status to other antibiotic agents
CPT/HCPCS: 36569; 71045; 72070; 72128; 72131; 76775; 76937; 80048; 80053; 81001; 85025; 85610; 85730; 87077; 87086; 87186; 93005; 94150; G0378; J0131; J1335; J2270; J2370; J2405; J2543; J2710; J3010; J7120; L0200; L0484

== ENCOUNTER → 2018-03-19 | Outpatient (CLI) | payer MEDICARE ==
[~2018-03-19] MED LIST changes: -ASPI325T27 PO; -ATOR20TA15 PO; -COQ130CA PO; +CYCL10TA PO; -DULC5TAB PO; +ECASA81 PO; +EPIN1INJ21 IV PUSH; +EPIN1INJ21 SQ; +FAMO20TA2 PO; +GETGO ROLLING W1 MI1; -IBUP200C PO; +Ipratropium Bromide NEB; +LIPI10TA PO; +NORC5TAB PO; +PERI PO; +POLY17S PO; +Zinc Oxide 40% Oint TOPICAL; +guaiFENesin ER PO
== END ==
LOC: PLAB 11:19
PROVIDERS: ATTEND Internal Medicine
DX: I10 Essential (primary) hypertension (principal); E78.5 Hyperlipidemia, unspecified

== ENCOUNTER → 2018-03-26 | Outpatient (CLI) | payer MEDICARE | LOC: PLAB 14:48 | PROVIDERS: ATTEND Internal Medicine | DX: I11.0 Hypertensive heart disease with heart failure (principal); I25.10 Atherosclerotic heart disease of native coronary artery without angina pectoris | CPT/HCPCS: 36415; 83880 ==